=== PATIENT | female | born 1975 | race African-American/Black ===

== ENCOUNTER 2022-10-29 14:34 | Inpatient (IN) | payer OTHER ==
[2022-10-29 15:02] VITALS: BMI 22.9
[2022-10-29] MEDS ORDERED: LOPERAMIDE HCL 2 MG CAPSULE PO PRN (16:46)
[2022-10-29] MEDS ORDERED: BENZOCAINE/MENTHOL (CHLORASEPTIC ) LOZENGE MM PRN (16:46)
[2022-10-29] MEDS ORDERED: POLYETHYLENE GLYCOL (HEALTHYLAX) 3350 17 GM PACKET PO PRN (16:46)
[2022-10-29] MEDS ORDERED: MAG HYDROX/AL HYDROX/SIMETH 30 ML UNIT-DOSE CUP PO PRN (16:46)
[2022-10-29] MEDS ORDERED: P-EPHED 60MG/TRIPROLIDI 2.5MG TABLET PO PRN (16:46)
[2022-10-29] MEDS ORDERED: MAGNESIUM HYDROX 2400MG/30ML ORAL SUSPENSION 30 ML CUP PO PRN (16:46)
[2022-10-29] MEDS ORDERED: guaiFENesin 200 MG/10 ML 10 ML UNIT-DOSE CUPS PO PRN (16:46)
[2022-10-29] MEDS ORDERED: hydrOXYzine PAMOATE 25 MG CAPSULE (FP) PO ONE (17:20)
[2022-10-29] MEDS: hydrOXYzine PAMOATE 25 MG CAPSULE (FP) PO PRN (17:22)
[2022-10-29] MEDS ORDERED: NICOTINE POLACRILEX 2 MG GUM ONE (17:57)
[2022-10-29] MEDS: NICOTINE POLACRILEX 2 MG GUM BC PRN (17:58)
[2022-10-29] MEDS ORDERED: ALBUTEROL SO4 HFA INHALER IH PRN (19:55)
[2022-10-29] MEDS ORDERED: TUBERCULIN PPD 5 TU/0.1ML VIAL ID ONE (20:01)
[2022-10-29] MEDS: NICOTINE 10 MG CARTRIDGE (INHALER) IH PRN (20:04)
[2022-10-29] MEDS: levETIRAcetam 250 MG TABLET PO SCH (21:34)
[2022-10-29] MEDS: THIAMINE HCL 100 MG TABLET (FP) PO SCH (21:35)
[2022-10-29] MEDS ORDERED: MELATONIN 5 MG TABLETS PO SCH (22:00)
[2022-10-30] MEDS: NICOTINE 10 MG CARTRIDGE (INHALER) IH PRN ×3 (06:37→21:58)
[2022-10-30] MEDS: levETIRAcetam 250 MG TABLET PO SCH ×2 (09:14→21:56)
[2022-10-30] MEDS: hydrOXYzine PAMOATE 25 MG CAPSULE (FP) PO PRN (09:14)
[2022-10-30] MEDS: PRENATAL VITAMINS W/ FOLIC ACID TABLET (FP) PO SCH (09:15)
[2022-10-30] MEDS: cloNIDine HCL 0.1 MG TABLET PO SCH (10:45)
[2022-10-30] MEDS: NICOTINE POLACRILEX 2 MG GUM BC PRN (10:47)
[2022-10-30] MEDS ORDERED: DIVALPROEX SODIUM 250 MG TABLET E.C. PO ONE (10:53)
[2022-10-30 11:44] LABS: CALCIUM 8.7 mg/dL (8.5-10.1)
[2022-10-30 11:45] LABS: ALBUMIN 3.3 g/dl (3.4-5.0); BLOOD UREA NITROGEN 14.3 mg/dL (7-18)
[2022-10-30 11:48] LABS: CREATININE 0.6 mg/dL (0.55-1.3)
[2022-10-30 11:49] LABS: BILIRUBIN,TOTAL 0.2 mg/dL (0.2-1); TOT PROT 6.7 g/dl (6.4-8.2)
[2022-10-30 13:58] LABS: PH,URINE 6.5 (5.0-8.0); URINE APPEARANCE CLOUDY; URINE BILIRUBIN NEGATIVE (NEGATIVE); URINE COLOR YELLOW; URINE GLUCOSE (UA) NEGATIVE (NEGATIVE); URINE KETONE NEGATIVE (NEGATIVE); URINE LEUK ESTERASE NEGATIVE (NEGATIVE); URINE NITRITE NEGATIVE (NEGATIVE); URINE PROTEIN NEGATIVE (NEGATIVE); URINE UROBILINOGEN 0.2 mg/dL (0.2-1.0)
[2022-10-30] MEDS: traZODone HCL 50 MG TABLET (FP) PO SCH (21:56)
[2022-10-30] MEDS: GABAPENTIN 300 MG CAPSULE PO SCH (21:56)
[2022-10-30] MEDS: QUEtiapine FUMARATE 300 MG TABLET PO SCH (21:56)
[2022-10-30] MEDS: THIAMINE HCL 100 MG TABLET (FP) PO SCH (21:56)
[2022-10-31] MEDS: PRENATAL VITAMINS W/ FOLIC ACID TABLET (FP) PO SCH (10:06)
[2022-10-31] MEDS: cloNIDine HCL 0.1 MG TABLET PO SCH (10:07)
[2022-10-31] MEDS: levETIRAcetam 250 MG TABLET PO SCH ×2 (10:08→21:41)
[2022-10-31] MEDS: GABAPENTIN 300 MG CAPSULE PO SCH ×2 (10:08→21:41)
[2022-10-31] MEDS: DIVALPROEX SODIUM 250 MG TABLET E.C. PO SCH (10:08)
[2022-10-31] MEDS: hydrOXYzine PAMOATE 25 MG CAPSULE (FP) PO PRN ×2 (10:08→21:42)
[2022-10-31] MEDS: IBUPROFEN 400 MG TABLET (FP) PO PRN (12:43)
[2022-10-31 13:33] LABS: HEMATOCRIT 35.1 % (32.4-45.2); HEMOGLOBIN 11.6 GM/dL (10.7-15.3); MCH 29.8 pg (25.7-33.7); MCHC 33.1 g/dl (32.0-36.0); MEAN CELL VOLUME 90.1 fl (80-96); MEAN PLT VOLUME 8.4 fl (7.5-11.1); PLATELET COUNT 285 10^3/uL (134-434); RDW 14.5 % (11.6-15.6); WHITE BLOOD COUNT 6.2 K/mm3 (4.0-10.0)
[2022-10-31] MEDS: NICOTINE 10 MG CARTRIDGE (INHALER) IH PRN (19:02)
[2022-10-31] MEDS: NICOTINE POLACRILEX 2 MG GUM BC PRN (19:04)
[2022-10-31] MEDS: traZODone HCL 50 MG TABLET (FP) PO SCH (21:41)
[2022-10-31] MEDS: THIAMINE HCL 100 MG TABLET (FP) PO SCH (21:42)
[2022-10-31] MEDS: QUEtiapine FUMARATE 300 MG TABLET PO SCH (21:42)
[2022-11-01] MEDS: hydrOXYzine PAMOATE 25 MG CAPSULE (FP) PO PRN ×2 (08:01→18:45)
[2022-11-01] MEDS: ACETAMINOPHEN 325 MG TABLET (FP) PO PRN (08:01)
[2022-11-01] MEDS: NICOTINE 10 MG CARTRIDGE (INHALER) IH PRN (08:08)
[2022-11-01] MEDS: cloNIDine HCL 0.1 MG TABLET PO SCH (10:15)
[2022-11-01] MEDS: levETIRAcetam 250 MG TABLET PO SCH ×2 (10:15→21:51)
[2022-11-01] MEDS: PRENATAL VITAMINS W/ FOLIC ACID TABLET (FP) PO SCH (10:15)
[2022-11-01] MEDS: GABAPENTIN 300 MG CAPSULE PO SCH ×2 (10:15→21:51)
[2022-11-01] MEDS: DIVALPROEX SODIUM 250 MG TABLET E.C. PO SCH (10:16)
[2022-11-01] MEDS: SIMETHICONE 80 MG TAB.CHEW (FP) PO PRN (10:58)
[2022-11-01] MEDS: traZODone HCL 50 MG TABLET (FP) PO SCH (21:50)
[2022-11-01] MEDS: QUEtiapine FUMARATE 300 MG TABLET PO SCH (21:51)
[2022-11-01] MEDS: THIAMINE HCL 100 MG TABLET (FP) PO SCH (21:51)
[2022-11-02] MEDS: NICOTINE 10 MG CARTRIDGE (INHALER) IH PRN (07:29)
[2022-11-02] MEDS: GABAPENTIN 300 MG CAPSULE PO SCH ×2 (10:04→21:19)
[2022-11-02] MEDS: levETIRAcetam 250 MG TABLET PO SCH ×2 (10:04→21:19)
[2022-11-02] MEDS: DIVALPROEX SODIUM 250 MG TABLET E.C. PO SCH (10:04)
[2022-11-02] MEDS: PRENATAL VITAMINS W/ FOLIC ACID TABLET (FP) PO SCH (10:06)
[2022-11-02] MEDS: SIMETHICONE 80 MG TAB.CHEW (FP) PO PRN ×2 (10:07→14:08)
[2022-11-02] MEDS: hydrOXYzine PAMOATE 25 MG CAPSULE (FP) PO PRN ×2 (10:07→21:21)
[2022-11-02] MEDS: IBUPROFEN 400 MG TABLET (FP) PO PRN (10:08)
[2022-11-02] MEDS: cloNIDine HCL 0.1 MG TABLET PO SCH (10:10)
[2022-11-02] MEDS: ACETAMINOPHEN 325 MG TABLET (FP) PO PRN (14:07)
[2022-11-02] MEDS: NICOTINE POLACRILEX 2 MG GUM BC PRN ×2 (15:30→17:49)
[2022-11-02] MEDS: traZODone HCL 50 MG TABLET (FP) PO SCH (21:19)
[2022-11-02] MEDS: QUEtiapine FUMARATE 300 MG TABLET PO SCH (21:19)
[2022-11-02] MEDS: THIAMINE HCL 100 MG TABLET (FP) PO SCH (21:20)
[2022-11-03] MEDS: GABAPENTIN 300 MG CAPSULE PO SCH ×2 (10:21→21:08)
[2022-11-03] MEDS: cloNIDine HCL 0.1 MG TABLET PO SCH (10:21)
[2022-11-03] MEDS: PRENATAL VITAMINS W/ FOLIC ACID TABLET (FP) PO SCH (10:21)
[2022-11-03] MEDS: levETIRAcetam 250 MG TABLET PO SCH ×2 (10:22→21:08)
[2022-11-03] MEDS: DIVALPROEX SODIUM 250 MG TABLET E.C. PO SCH (10:22)
[2022-11-03] MEDS: hydrOXYzine PAMOATE 25 MG CAPSULE (FP) PO PRN (10:23)
[2022-11-03] MEDS: NICOTINE 10 MG CARTRIDGE (INHALER) IH PRN (19:10)
[2022-11-03] MEDS: traZODone HCL 50 MG TABLET (FP) PO SCH (21:07)
[2022-11-03] MEDS: QUEtiapine FUMARATE 300 MG TABLET PO SCH (21:08)
[2022-11-03] MEDS: SIMETHICONE 80 MG TAB.CHEW (FP) PO PRN (21:08)
[2022-11-03] MEDS: THIAMINE HCL 100 MG TABLET (FP) PO SCH (21:08)
[2022-11-04] MEDS: DIVALPROEX SODIUM 250 MG TABLET E.C. PO SCH (11:00)
[2022-11-04] MEDS: GABAPENTIN 300 MG CAPSULE PO SCH ×2 (11:00→21:25)
[2022-11-04] MEDS: levETIRAcetam 250 MG TABLET PO SCH ×2 (11:00→21:25)
[2022-11-04] MEDS: PRENATAL VITAMINS W/ FOLIC ACID TABLET (FP) PO SCH (11:00)
[2022-11-04] MEDS: cloNIDine HCL 0.1 MG TABLET PO SCH (11:01)
[2022-11-04] MEDS: SIMETHICONE 80 MG TAB.CHEW (FP) PO PRN (11:01)
[2022-11-04] MEDS: NICOTINE 10 MG CARTRIDGE (INHALER) IH PRN (15:03)
[2022-11-04] MEDS: hydrOXYzine PAMOATE 25 MG CAPSULE (FP) PO PRN ×2 (16:11→21:26)
[2022-11-04 18:01] LABS: HIV INTERPRETATION NEGATIVE (NEGATIVE)
[2022-11-04] MEDS: traZODone HCL 50 MG TABLET (FP) PO SCH (21:25)
[2022-11-04] MEDS: THIAMINE HCL 100 MG TABLET (FP) PO SCH (21:26)
[2022-11-04] MEDS: QUEtiapine FUMARATE 300 MG TABLET PO SCH (21:26)
[2022-11-05 07:25] VITALS: BP 99/70; PULSE 87; RESP 16; TEMP 97.9
[2022-11-05] MEDS: NICOTINE 10 MG CARTRIDGE (INHALER) IH PRN (08:45)
[2022-11-05] MEDS: DIVALPROEX SODIUM 250 MG TABLET E.C. PO SCH (10:22)
[2022-11-05] MEDS: PRENATAL VITAMINS W/ FOLIC ACID TABLET (FP) PO SCH (10:22)
[2022-11-05] MEDS: GABAPENTIN 300 MG CAPSULE PO SCH (10:22)
[2022-11-05] MEDS: cloNIDine HCL 0.1 MG TABLET PO SCH (10:22)
[2022-11-05] MEDS: levETIRAcetam 250 MG TABLET PO SCH (10:22)
[2022-11-05] MEDS: hydrOXYzine PAMOATE 25 MG CAPSULE (FP) PO PRN (11:42)
== END 2022-11-05 17:40 | disposition home or self-care (01) | DRG 772 ==
LOC: YASAS 14:34 → Y5N 18:54
PROVIDERS: ADMIT Allergy & Immunology; ATTEND Psychiatry & Neurology Pain Medicine
PROC: HZ42ZZZ Group Counseling for Substance Abuse Treatment, Cognitive-Behavioral (ICD-10-PCS; principal; 2022-10-29)
DX: F14.20 Cocaine dependence, uncomplicated (principal); F12.20 Cannabis dependence, uncomplicated; F17.210 Nicotine dependence, cigarettes, uncomplicated; F25.9 Schizoaffective disorder, unspecified; F19.24 Other psychoactive substance dependence with psychoactive substance-induced mood disorder; F41.9 Anxiety disorder, unspecified; G40.909 Epilepsy, unspecified, not intractable, without status epilepticus; J45.909 Unspecified asthma, uncomplicated; Z62.810 Personal history of physical and sexual abuse in childhood; Z91.410 Personal history of adult physical and sexual abuse; Z88.0 Allergy status to penicillin
CPT/HCPCS: 36415; 80053; 80164; 81003; 81025; 85027; 86780; 87389; C9803-CS; U0003; U0005

== ENCOUNTER 2023-03-13 02:14 | Inpatient (IN) | payer OTHER ==
[2023-03-13 03:21] VITALS: BMI 18.1
[2023-03-13] MEDS ORDERED: MAGNESIUM HYDROX 2400MG/30ML ORAL SUSPENSION 30 ML CUP PO PRN (04:17)
[2023-03-13] MEDS ORDERED: ONDANSETRON *ODT* 4 MG TABLET SL PRN (04:17)
[2023-03-13] MEDS ORDERED: POLYETHYLENE GLYCOL (HEALTHYLAX) 3350 17 GM PACKET PO PRN (04:17)
[2023-03-13] MEDS ORDERED: IBUPROFEN 400 MG TABLET (FP) PO PRN (04:17)
[2023-03-13] MEDS ORDERED: guaiFENesin 600 MG TABLET.ER (FP) PO PRN (04:17)
[2023-03-13] MEDS ORDERED: BENZOCAINE/MENTHOL (CHLORASEPTIC ) LOZENGE MM PRN (04:17)
[2023-03-13] MEDS ORDERED: NALOXONE HCL (KLOXXADO) 8 MG SPRAY NS PRN (04:17)
[2023-03-13] MEDS ORDERED: DICYCLOMINE HCL 10 MG CAPSULE PO PRN (04:17)
[2023-03-13] MEDS ORDERED: BENZONATATE 200 MG CAPSULE PO PRN (04:17)
[2023-03-13] MEDS ORDERED: ACETAMINOPHEN 325 MG TABLET (FP) PO PRN (04:17)
[2023-03-13] MEDS ORDERED: BISMUTH SUBSALICYLATE 524 MG/30 ML PO PRN (04:17)
[2023-03-13] MEDS ORDERED: NALOXONE HCL 0.4 MG/ML VIAL IM PRN (04:17)
[2023-03-13] MEDS ORDERED: MAG HYDROX/AL HYDROX/SIMETH 30 ML UNIT-DOSE CUP PO PRN (04:17)
[2023-03-13] MEDS ORDERED: ALBUTEROL SO4 HFA INHALER IH PRN (04:17)
[2023-03-13] MEDS ORDERED: LOPERAMIDE HCL 2 MG CAPSULE PO PRN (04:17)
[2023-03-13] MEDS ORDERED: IBUPROFEN 600 MG TABLET (FP) PO ONE (05:33)
[2023-03-13] MEDS ORDERED: hydrOXYzine PAMOATE 25 MG CAPSULE (FP) PO ONE (05:33)
[2023-03-13] MEDS: IBUPROFEN 600 MG TABLET (FP) PO PRN (05:35)
[2023-03-13] MEDS: hydrOXYzine PAMOATE 25 MG CAPSULE (FP) PO PRN (05:37)
[2023-03-13] MEDS: NICOTINE POLACRILEX 2 MG GUM BUC PRN ×2 (06:45→10:43)
[2023-03-13] MEDS: levETIRAcetam 500 MG TABLET (FP) PO SCH ×2 (10:42→22:29)
[2023-03-13] MEDS: PRENATAL VITAMINS W/ FOLIC ACID TABLET (FP) PO SCH (10:42)
[2023-03-13] MEDS: NICOTINE 21 MG/24 HOURS TOPICAL PATCH TD SCH (10:43)
[2023-03-13] MEDS ORDERED: LORazepam 1 MG TABLET PO PRN (12:23)
[2023-03-13] MEDS: LORazepam 2 MG TABLET PO SCH ×2 (17:37→22:30)
[2023-03-13] MEDS: MELATONIN 5 MG TABLETS PO SCH (22:30)
[2023-03-13] MEDS: THIAMINE HCL 100 MG TABLET (FP) PO SCH (22:30)
[2023-03-14] MEDS: LORazepam 1 MG TABLET PO SCH ×4 (05:43→22:25)
[2023-03-14] MEDS: NICOTINE 21 MG/24 HOURS TOPICAL PATCH TD SCH (10:11)
[2023-03-14] MEDS: PRENATAL VITAMINS W/ FOLIC ACID TABLET (FP) PO SCH (10:11)
[2023-03-14] MEDS: levETIRAcetam 500 MG TABLET (FP) PO SCH ×2 (10:15→22:24)
[2023-03-14] MEDS: NICOTINE POLACRILEX 2 MG GUM BUC PRN (10:16)
[2023-03-14] MEDS: cloNIDine HCL 0.1 MG TABLET PO SCH (10:54)
[2023-03-14] MEDS: GABAPENTIN 300 MG CAPSULE PO SCH ×2 (10:54→22:24)
[2023-03-14 11:43] LABS: POTASSIUM 4.5 mmol/L (3.5-5.1)
[2023-03-14 11:47] LABS: ALBUMIN 3.2 g/dl (3.4-5.0); BLOOD UREA NITROGEN 13.9 mg/dL (7-18); CALCIUM 9.4 mg/dL (8.5-10.1)
[2023-03-14 11:48] LABS: HEMATOCRIT 38.4 % (32.4-45.2); HEMOGLOBIN 12.7 GM/dL (10.7-15.3); MCH 28.9 pg (25.7-33.7); MEAN CELL VOLUME 87.6 fl (80-96); MEAN PLT VOLUME 8.2 fl (7.5-11.1); PLATELET COUNT 307 10^3/uL (134-434); RBC 4.39 M/mm3 (3.60-5.2); RDW 14.4 % (11.6-15.6); WHITE BLOOD COUNT 6.8 K/mm3 (4.0-10.0)
[2023-03-14 11:50] LABS: CREATININE 0.6 mg/dL (0.55-1.3)
[2023-03-14 11:51] LABS: BILIRUBIN,TOTAL 0.1 mg/dL (0.2-1)
[2023-03-14 11:52] LABS: TOT PROT 6.8 g/dl (6.4-8.2)
[2023-03-14] MEDS: hydrOXYzine PAMOATE 25 MG CAPSULE (FP) PO PRN (16:53)
[2023-03-14] MEDS: IBUPROFEN 600 MG TABLET (FP) PO PRN (16:55)
[2023-03-14] MEDS: MELATONIN 5 MG TABLETS PO SCH (22:24)
[2023-03-14] MEDS: traZODone HCL 50 MG TABLET (FP) PO SCH (22:24)
[2023-03-14] MEDS: THIAMINE HCL 100 MG TABLET (FP) PO SCH (22:24)
[2023-03-14] MEDS: DIVALPROEX SODIUM 250 MG TABLET E.C. PO SCH (22:25)
[2023-03-14] MEDS: QUEtiapine FUMARATE 300 MG TABLET PO SCH (22:25)
[2023-03-15] MEDS ORDERED: LORazepam 0.5 MG TABLET PO PRN
[2023-03-15] MEDS: LORazepam 0.5 MG TABLET PO SCH ×4 (04:52→22:05)
[2023-03-15] MEDS: NICOTINE 21 MG/24 HOURS TOPICAL PATCH TD SCH (09:46)
[2023-03-15] MEDS: cloNIDine HCL 0.1 MG TABLET PO SCH (09:46)
[2023-03-15] MEDS: hydrOXYzine PAMOATE 25 MG CAPSULE (FP) PO PRN (09:46)
[2023-03-15] MEDS: GABAPENTIN 300 MG CAPSULE PO SCH ×2 (09:46→22:03)
[2023-03-15] MEDS: levETIRAcetam 500 MG TABLET (FP) PO SCH ×2 (09:46→22:03)
[2023-03-15] MEDS: PRENATAL VITAMINS W/ FOLIC ACID TABLET (FP) PO SCH (09:47)
[2023-03-15] MEDS: NICOTINE POLACRILEX 2 MG GUM BUC PRN (09:48)
[2023-03-15] MEDS: MELATONIN 5 MG TABLETS PO SCH (22:03)
[2023-03-15] MEDS: QUEtiapine FUMARATE 300 MG TABLET PO SCH (22:03)
[2023-03-15] MEDS: traZODone HCL 50 MG TABLET (FP) PO SCH (22:03)
[2023-03-15] MEDS: THIAMINE HCL 100 MG TABLET (FP) PO SCH (22:03)
[2023-03-15] MEDS: DIVALPROEX SODIUM 250 MG TABLET E.C. PO SCH (22:03)
[2023-03-16] MEDS ORDERED: LORazepam 0.5 MG TABLET PO ONE (05:00)
[2023-03-16] MEDS: PRENATAL VITAMINS W/ FOLIC ACID TABLET (FP) PO SCH (09:27)
[2023-03-16] MEDS: levETIRAcetam 500 MG TABLET (FP) PO SCH (09:31)
[2023-03-16] MEDS: GABAPENTIN 300 MG CAPSULE PO SCH (09:31)
[2023-03-16] MEDS: cloNIDine HCL 0.1 MG TABLET PO SCH (09:31)
[2023-03-16] MEDS: NICOTINE 21 MG/24 HOURS TOPICAL PATCH TD SCH (09:32)
[2023-03-16] MEDS: NICOTINE POLACRILEX 2 MG GUM BUC PRN (09:32)
[2023-03-16 09:36] VITALS: BP 129/79; PULSE 90; RESP 16; TEMP 97.5
== END 2023-03-16 12:18 | disposition other institution (70) | DRG 774 ==
LOC: YASAS 02:14 → Y6N 05:24
PROVIDERS: ADMIT Allergy & Immunology; ATTEND Allergy & Immunology
PROC: HZ2ZZZZ Detoxification Services for Substance Abuse Treatment (ICD-10-PCS; principal; 2023-03-13)
DX: F10.230 Alcohol dependence with withdrawal, uncomplicated (principal); F14.20 Cocaine dependence, uncomplicated; F12.20 Cannabis dependence, uncomplicated; F17.213 Nicotine dependence, cigarettes, with withdrawal; F25.1 Schizoaffective disorder, depressive type; F19.282 Other psychoactive substance dependence with psychoactive substance-induced sleep disorder; F19.24 Other psychoactive substance dependence with psychoactive substance-induced mood disorder; G40.909 Epilepsy, unspecified, not intractable, without status epilepticus; I10 Essential (primary) hypertension; J45.20 Mild intermittent asthma, uncomplicated; Z62.810 Personal history of physical and sexual abuse in childhood; R26.89 Other abnormalities of gait and mobility; Z99.89 Dependence on other enabling machines and devices; Z91.410 Personal history of adult physical and sexual abuse; Z88.0 Allergy status to penicillin
CPT/HCPCS: 36415; 80053; 81025; 85027; 86780; 87635; 87811

== ENCOUNTER 2023-03-16 12:26 | Inpatient (IN) | payer OTHER ==
[2023-03-16] MEDS ORDERED: POLYETHYLENE GLYCOL (HEALTHYLAX) 3350 17 GM PACKET PO PRN (13:11)
[2023-03-16] MEDS ORDERED: METHOCARBAMOL 500 MG TABLET PO PRN (13:11)
[2023-03-16] MEDS ORDERED: LOPERAMIDE HCL 2 MG CAPSULE PO PRN (13:11)
[2023-03-16] MEDS ORDERED: MAGNESIUM HYDROX 2400MG/30ML ORAL SUSPENSION 30 ML CUP PO PRN (13:11)
[2023-03-16] MEDS ORDERED: IBUPROFEN 600 MG TABLET (FP) PO PRN (13:11)
[2023-03-16] MEDS ORDERED: IBUPROFEN 400 MG TABLET (FP) PO PRN (13:11)
[2023-03-16] MEDS ORDERED: AMMONIUM LACTATE 12% LOTION 225 GM BOTTLE TP PRN (13:11)
[2023-03-16] MEDS ORDERED: NICOTINE 21 MG/24 HOURS TOPICAL PATCH TD PRN (13:11)
[2023-03-16] MEDS ORDERED: COLLOIDAL OATMEAL 1 BAR EACH TP PRN (13:11)
[2023-03-16] MEDS ORDERED: guaiFENesin 600 MG TABLET.ER (FP) PO PRN (13:11)
[2023-03-16] MEDS ORDERED: MAG HYDROX/AL HYDROX/SIMETH 30 ML UNIT-DOSE CUP PO PRN (13:11)
[2023-03-16] MEDS ORDERED: NICOTINE POLACRILEX 4 MG GUM BUC PRN (13:11)
[2023-03-16] MEDS ORDERED: ACETAMINOPHEN 325 MG TABLET (FP) PO PRN (13:11)
[2023-03-16] MEDS ORDERED: NICOTINE 10 MG CARTRIDGE (INHALER) IH PRN (13:11)
[2023-03-16 13:19] VITALS: RESP 18
[2023-03-16] MEDS: DIVALPROEX SODIUM 250 MG TABLET E.C. PO SCH (21:09)
[2023-03-16] MEDS: MELATONIN 5 MG TABLETS PO SCH (21:09)
[2023-03-16] MEDS: traZODone HCL 50 MG TABLET (FP) PO SCH (21:09)
[2023-03-16] MEDS: QUEtiapine FUMARATE 300 MG TABLET PO SCH (21:09)
[2023-03-16] MEDS: GABAPENTIN 300 MG CAPSULE PO SCH (21:09)
[2023-03-16] MEDS: levETIRAcetam 500 MG TABLET (FP) PO SCH (21:09)
[2023-03-16] MEDS: THIAMINE HCL 100 MG TABLET (FP) PO SCH (21:09)
[2023-03-16] MEDS: hydrOXYzine PAMOATE 25 MG CAPSULE (FP) PO PRN (21:11)
[2023-03-17] MEDS: cloNIDine HCL 0.1 MG TABLET PO SCH (10:18)
[2023-03-17] MEDS: levETIRAcetam 500 MG TABLET (FP) PO SCH ×2 (10:19→21:15)
[2023-03-17] MEDS: PRENATAL VITAMINS W/ FOLIC ACID TABLET (FP) PO SCH (10:19)
[2023-03-17] MEDS: GABAPENTIN 300 MG CAPSULE PO SCH ×2 (10:19→21:15)
[2023-03-17] MEDS: BENZOCAINE/MENTHOL (CHLORASEPTIC ) LOZENGE MM PRN (11:52)
[2023-03-17] MEDS: BENZONATATE 200 MG CAPSULE PO PRN (11:52)
[2023-03-17] MEDS: traZODone HCL 50 MG TABLET (FP) PO SCH (21:15)
[2023-03-17] MEDS: THIAMINE HCL 100 MG TABLET (FP) PO SCH (21:15)
[2023-03-17] MEDS: QUEtiapine FUMARATE 300 MG TABLET PO SCH (21:15)
[2023-03-17] MEDS: DIVALPROEX SODIUM 250 MG TABLET E.C. PO SCH (21:15)
[2023-03-17] MEDS: MELATONIN 5 MG TABLETS PO SCH (21:16)
[2023-03-18] MEDS: GABAPENTIN 300 MG CAPSULE PO SCH ×2 (09:43→21:15)
[2023-03-18] MEDS: cloNIDine HCL 0.1 MG TABLET PO SCH (09:43)
[2023-03-18] MEDS: PRENATAL VITAMINS W/ FOLIC ACID TABLET (FP) PO SCH (09:43)
[2023-03-18] MEDS: levETIRAcetam 500 MG TABLET (FP) PO SCH ×2 (09:43→21:15)
[2023-03-18] MEDS: ALBUTEROL SO4 HFA INHALER IH PRN ×2 (13:31→20:17)
[2023-03-18] MEDS: THIAMINE HCL 100 MG TABLET (FP) PO SCH (21:15)
[2023-03-18] MEDS: MELATONIN 5 MG TABLETS PO SCH (21:15)
[2023-03-18] MEDS: traZODone HCL 50 MG TABLET (FP) PO SCH (21:15)
[2023-03-18] MEDS: QUEtiapine FUMARATE 300 MG TABLET PO SCH (21:15)
[2023-03-18] MEDS: DIVALPROEX SODIUM 250 MG TABLET E.C. PO SCH (21:15)
[2023-03-18] MEDS: hydrOXYzine PAMOATE 25 MG CAPSULE (FP) PO PRN (21:18)
[2023-03-18] MEDS: BENZOCAINE/MENTHOL (CHLORASEPTIC ) LOZENGE MM PRN (23:30)
[2023-03-18] MEDS: BENZONATATE 200 MG CAPSULE PO PRN (23:30)
[2023-03-19 07:39] VITALS: TEMP 98
[2023-03-19] MEDS: levETIRAcetam 500 MG TABLET (FP) PO SCH (10:11)
[2023-03-19] MEDS: cloNIDine HCL 0.1 MG TABLET PO SCH (10:11)
[2023-03-19] MEDS: GABAPENTIN 300 MG CAPSULE PO SCH (10:11)
[2023-03-19] MEDS: PRENATAL VITAMINS W/ FOLIC ACID TABLET (FP) PO SCH (10:12)
[2023-03-19] MEDS: ALBUTEROL SO4 HFA INHALER IH PRN (10:12)
[2023-03-19 10:29] VITALS: BP 111/58; PULSE 99
[2023-03-19] MEDS ORDERED: ALBUTEROL SO4 2.5/IPRATROPIUM 0.5 INH SOL 3 ML VIAL.NEB. NEB PRN (13:07)
[2023-03-19] MEDS ORDERED: PANTOPRAZOLE 40 MG TABLET PO SCH (13:15)
[2023-03-19] MEDS ORDERED: BUDESONIDE/FORMETEROL FUMARATE 80/4.5 mcg INHALER IH SCH (13:15)
[2023-03-19] MEDS ORDERED: guaiFENesin 600 MG TABLET.ER (FP) PO SCH (13:15)
== END 2023-03-19 18:00 | disposition left against medical advice (07) | DRG 770 ==
LOC: YASAS 12:26 → Y5N 12:29
PROVIDERS: ADMIT Allergy & Immunology; ATTEND Psychiatry & Neurology Pain Medicine
PROC: HZ42ZZZ Group Counseling for Substance Abuse Treatment, Cognitive-Behavioral (ICD-10-PCS; principal; 2023-03-16)
DX: F10.20 Alcohol dependence, uncomplicated (principal); F14.20 Cocaine dependence, uncomplicated; F12.20 Cannabis dependence, uncomplicated; F17.210 Nicotine dependence, cigarettes, uncomplicated; I10 Essential (primary) hypertension; J45.909 Unspecified asthma, uncomplicated; R05.9 Cough, unspecified; Z88.0 Allergy status to penicillin
CPT/HCPCS: 26055; 36415; 80164

== ENCOUNTER 2023-04-05 09:27 | Inpatient (IN) | payer OTHER ==
[2023-04-05 09:55] VITALS: BMI 20.6
[2023-04-05] MEDS ORDERED: LOPERAMIDE HCL 2 MG CAPSULE PO PRN (11:06)
[2023-04-05] MEDS ORDERED: NALOXONE HCL 0.4 MG/ML VIAL IM PRN (11:06)
[2023-04-05] MEDS ORDERED: POLYETHYLENE GLYCOL (HEALTHYLAX) 3350 17 GM PACKET PO PRN (11:06)
[2023-04-05] MEDS ORDERED: ACETAMINOPHEN 325 MG TABLET (FP) PO PRN (11:06)
[2023-04-05] MEDS ORDERED: guaiFENesin 600 MG TABLET.ER (FP) PO PRN (11:06)
[2023-04-05] MEDS ORDERED: AMMONIUM LACTATE 12% LOTION 225 GM BOTTLE TP PRN (11:06)
[2023-04-05] MEDS ORDERED: BENZOCAINE/MENTHOL (CHLORASEPTIC ) LOZENGE MM PRN (11:06)
[2023-04-05] MEDS ORDERED: IBUPROFEN 400 MG TABLET (FP) PO PRN (11:06)
[2023-04-05] MEDS ORDERED: BENZONATATE 200 MG CAPSULE PO PRN (11:06)
[2023-04-05] MEDS ORDERED: NALOXONE HCL (KLOXXADO) 8 MG SPRAY NS PRN (11:06)
[2023-04-05] MEDS ORDERED: PRENATAL VITAMINS W/ FOLIC ACID TABLET (FP) PO ONE (11:28)
[2023-04-05] MEDS: PRENATAL VITAMINS W/ FOLIC ACID TABLET (FP) PO SCH (11:31)
[2023-04-05] MEDS ORDERED: levETIRAcetam 500 MG TABLET (FP) PO ONE (12:47)
[2023-04-05] MEDS: ALBUTEROL SO4 HFA INHALER IH PRN ×2 (12:53→21:20)
[2023-04-05] MEDS: NICOTINE 21 MG/24 HOURS TOPICAL PATCH TD SCH (14:09)
[2023-04-05] MEDS: hydrOXYzine PAMOATE 25 MG CAPSULE (FP) PO PRN (14:26)
[2023-04-05 16:58] LABS: POTASSIUM 4.1 mmol/L (3.5-5.1)
[2023-04-05 17:00] LABS: HEMATOCRIT 35.1 % (32.4-45.2); HEMOGLOBIN 11.8 GM/dL (10.7-15.3); MCH 29.5 pg (25.7-33.7); MCHC 33.5 g/dl (32.0-36.0); MEAN CELL VOLUME 87.9 fl (80-96); MEAN PLT VOLUME 7.9 fl (7.5-11.1); PLATELET COUNT 350 10^3/uL (134-434); RBC 3.99 M/mm3 (3.60-5.2); RDW 14.4 % (11.6-15.6); WHITE BLOOD COUNT 7.9 K/mm3 (4.0-10.0)
[2023-04-05 17:01] LABS: BLOOD UREA NITROGEN 23.2 mg/dL (7-18)
[2023-04-05 17:02] LABS: ALBUMIN 3.5 g/dl (3.4-5.0)
[2023-04-05 17:05] LABS: CALCIUM 8.7 mg/dL (8.5-10.1); CREATININE 0.7 mg/dL (0.55-1.3)
[2023-04-05 17:06] LABS: BILIRUBIN,TOTAL 0.3 mg/dL (0.2-1); TOT PROT 7.9 g/dl (6.4-8.2)
[2023-04-05] MEDS: cloNIDine HCL 0.1 MG TABLET PO SCH (19:15)
[2023-04-05] MEDS: THIAMINE HCL 100 MG TABLET (FP) PO SCH (21:21)
[2023-04-05] MEDS: PARoxetine HCL 20 MG TABLET PO SCH (21:21)
[2023-04-05] MEDS: DIVALPROEX SODIUM 250 MG TABLET E.C. PO SCH (21:22)
[2023-04-05] MEDS: levETIRAcetam 500 MG TABLET (FP) PO SCH (21:22)
[2023-04-05] MEDS: QUEtiapine FUMARATE 400 MG TABLET PO SCH (21:22)
[2023-04-05] MEDS: traZODone HCL 50 MG TABLET (FP) PO SCH (21:22)
[2023-04-05] MEDS: GABAPENTIN 300 MG CAPSULE PO SCH (21:22)
[2023-04-05] MEDS ORDERED: MELATONIN 5 MG TABLETS PO SCH (22:00)
[2023-04-06] MEDS: NICOTINE 21 MG/24 HOURS TOPICAL PATCH TD SCH (09:51)
[2023-04-06] MEDS: PRENATAL VITAMINS W/ FOLIC ACID TABLET (FP) PO SCH (09:51)
[2023-04-06] MEDS: levETIRAcetam 500 MG TABLET (FP) PO SCH ×2 (09:51→21:17)
[2023-04-06] MEDS: GABAPENTIN 300 MG CAPSULE PO SCH ×2 (09:51→21:16)
[2023-04-06 12:15] LABS: EPI CELLS 32 /uL (0-25.1); HYALINE CASTS 0 /uL (0-3.1); URINE APPEARANCE CLEAR; URINE BACTERIA 842 /uL (0-1359); URINE BILIRUBIN NEGATIVE (NEGATIVE); URINE COLOR YELLOW; URINE GLUCOSE (UA) NEGATIVE (NEGATIVE); URINE KETONE NEGATIVE (NEGATIVE); URINE LEUK ESTERASE TRACE (NEGATIVE); URINE NITRITE NEGATIVE (NEGATIVE); URINE PROTEIN NEGATIVE (NEGATIVE); URINE RBC 6 /uL (0-23.9); URINE UROBILINOGEN 0.2 mg/dL (0.2-1.0); URINE WBC 50 /uL (0-25.8)
[2023-04-06] MEDS: cloNIDine HCL 0.1 MG TABLET PO SCH (18:16)
[2023-04-06] MEDS: THIAMINE HCL 100 MG TABLET (FP) PO SCH (21:15)
[2023-04-06] MEDS: traZODone HCL 50 MG TABLET (FP) PO SCH (21:16)
[2023-04-06] MEDS: QUEtiapine FUMARATE 400 MG TABLET PO SCH (21:16)
[2023-04-06] MEDS: DIVALPROEX SODIUM 250 MG TABLET E.C. PO SCH (21:17)
[2023-04-06] MEDS: PARoxetine HCL 20 MG TABLET PO SCH (21:17)
[2023-04-06] MEDS: hydrOXYzine PAMOATE 25 MG CAPSULE (FP) PO PRN (21:18)
[2023-04-07] MEDS: PRENATAL VITAMINS W/ FOLIC ACID TABLET (FP) PO SCH (09:58)
[2023-04-07] MEDS: NICOTINE 21 MG/24 HOURS TOPICAL PATCH TD SCH (09:59)
[2023-04-07] MEDS: levETIRAcetam 500 MG TABLET (FP) PO SCH ×2 (09:59→21:21)
[2023-04-07] MEDS: GABAPENTIN 300 MG CAPSULE PO SCH ×2 (09:59→21:22)
[2023-04-07] MEDS: hydrOXYzine PAMOATE 25 MG CAPSULE (FP) PO PRN ×3 (10:00→21:23)
[2023-04-07] MEDS: cloNIDine HCL 0.1 MG TABLET PO SCH (18:04)
[2023-04-07] MEDS: PARoxetine HCL 20 MG TABLET PO SCH (21:21)
[2023-04-07] MEDS: THIAMINE HCL 100 MG TABLET (FP) PO SCH (21:21)
[2023-04-07] MEDS: DIVALPROEX SODIUM 250 MG TABLET E.C. PO SCH (21:21)
[2023-04-07] MEDS: traZODone HCL 50 MG TABLET (FP) PO SCH (21:22)
[2023-04-07] MEDS: QUEtiapine FUMARATE 400 MG TABLET PO SCH (21:22)
[2023-04-07] MEDS: COLLOIDAL OATMEAL 1 BAR EACH TP PRN (21:26)
[2023-04-08] MEDS: MAGNESIUM HYDROX 2400MG/30ML ORAL SUSPENSION 30 ML CUP PO PRN (03:46)
[2023-04-08] MEDS: NICOTINE 21 MG/24 HOURS TOPICAL PATCH TD SCH (09:30)
[2023-04-08] MEDS: PRENATAL VITAMINS W/ FOLIC ACID TABLET (FP) PO SCH (09:30)
[2023-04-08] MEDS: GABAPENTIN 300 MG CAPSULE PO SCH ×2 (09:30→21:26)
[2023-04-08] MEDS: levETIRAcetam 500 MG TABLET (FP) PO SCH ×2 (09:30→21:26)
[2023-04-08] MEDS: hydrOXYzine PAMOATE 25 MG CAPSULE (FP) PO PRN ×2 (09:31→21:27)
[2023-04-08] MEDS: MAG HYDROX/AL HYDROX/SIMETH 30 ML UNIT-DOSE CUP PO PRN (15:05)
[2023-04-08] MEDS: cloNIDine HCL 0.1 MG TABLET PO SCH (17:02)
[2023-04-08] MEDS: COLLOIDAL OATMEAL 1 BAR EACH TP PRN (17:08)
[2023-04-08] MEDS: PARoxetine HCL 20 MG TABLET PO SCH (21:26)
[2023-04-08] MEDS: traZODone HCL 50 MG TABLET (FP) PO SCH (21:26)
[2023-04-08] MEDS: THIAMINE HCL 100 MG TABLET (FP) PO SCH (21:26)
[2023-04-08] MEDS: QUEtiapine FUMARATE 400 MG TABLET PO SCH (21:26)
[2023-04-08] MEDS: DIVALPROEX SODIUM 250 MG TABLET E.C. PO SCH (21:26)
[2023-04-09] MEDS: levETIRAcetam 500 MG TABLET (FP) PO SCH ×2 (10:06→21:52)
[2023-04-09] MEDS: PRENATAL VITAMINS W/ FOLIC ACID TABLET (FP) PO SCH (10:06)
[2023-04-09] MEDS: GABAPENTIN 300 MG CAPSULE PO SCH ×2 (10:07→21:52)
[2023-04-09] MEDS: hydrOXYzine PAMOATE 25 MG CAPSULE (FP) PO PRN ×2 (10:07→20:10)
[2023-04-09] MEDS: NICOTINE 21 MG/24 HOURS TOPICAL PATCH TD SCH (10:07)
[2023-04-09] MEDS: MAG HYDROX/AL HYDROX/SIMETH 30 ML UNIT-DOSE CUP PO PRN (12:31)
[2023-04-09] MEDS: MAGNESIUM HYDROX 2400MG/30ML ORAL SUSPENSION 30 ML CUP PO PRN (14:26)
[2023-04-09] MEDS: cloNIDine HCL 0.1 MG TABLET PO SCH (17:23)
[2023-04-09] MEDS: PARoxetine HCL 20 MG TABLET PO SCH (21:52)
[2023-04-09] MEDS: DIVALPROEX SODIUM 250 MG TABLET E.C. PO SCH (21:52)
[2023-04-09] MEDS: THIAMINE HCL 100 MG TABLET (FP) PO SCH (21:52)
[2023-04-09] MEDS: QUEtiapine FUMARATE 400 MG TABLET PO SCH (21:52)
[2023-04-09] MEDS: traZODone HCL 50 MG TABLET (FP) PO SCH (21:52)
[2023-04-10] MEDS: PRENATAL VITAMINS W/ FOLIC ACID TABLET (FP) PO SCH (09:59)
[2023-04-10] MEDS: NICOTINE 21 MG/24 HOURS TOPICAL PATCH TD SCH (09:59)
[2023-04-10] MEDS: GABAPENTIN 300 MG CAPSULE PO SCH ×2 (09:59→21:26)
[2023-04-10] MEDS: levETIRAcetam 500 MG TABLET (FP) PO SCH ×2 (09:59→21:27)
[2023-04-10] MEDS: hydrOXYzine PAMOATE 25 MG CAPSULE (FP) PO PRN (14:58)
[2023-04-10] MEDS: cloNIDine HCL 0.1 MG TABLET PO SCH (17:45)
[2023-04-10] MEDS: DIVALPROEX SODIUM 250 MG TABLET E.C. PO SCH (21:26)
[2023-04-10] MEDS: PARoxetine HCL 20 MG TABLET PO SCH (21:26)
[2023-04-10] MEDS: THIAMINE HCL 100 MG TABLET (FP) PO SCH (21:26)
[2023-04-10] MEDS: traZODone HCL 50 MG TABLET (FP) PO SCH (21:26)
[2023-04-10] MEDS: QUEtiapine FUMARATE 400 MG TABLET PO SCH (21:27)
[2023-04-11] MEDS: levETIRAcetam 500 MG TABLET (FP) PO SCH ×2 (10:26→21:24)
[2023-04-11] MEDS: PRENATAL VITAMINS W/ FOLIC ACID TABLET (FP) PO SCH (10:26)
[2023-04-11] MEDS: GABAPENTIN 300 MG CAPSULE PO SCH ×2 (10:26→21:24)
[2023-04-11] MEDS: NICOTINE 21 MG/24 HOURS TOPICAL PATCH TD SCH (10:27)
[2023-04-11] MEDS: hydrOXYzine PAMOATE 25 MG CAPSULE (FP) PO PRN (10:27)
[2023-04-11] MEDS: cloNIDine HCL 0.1 MG TABLET PO SCH (17:37)
[2023-04-11] MEDS: traZODone HCL 50 MG TABLET (FP) PO SCH (21:24)
[2023-04-11] MEDS: DIVALPROEX SODIUM 250 MG TABLET E.C. PO SCH (21:24)
[2023-04-11] MEDS: QUEtiapine FUMARATE 200 MG TABLET PO SCH (21:24)
[2023-04-11] MEDS: PARoxetine HCL 20 MG TABLET PO SCH (21:24)
[2023-04-11] MEDS: THIAMINE HCL 100 MG TABLET (FP) PO SCH (21:24)
[2023-04-12] MEDS: levETIRAcetam 500 MG TABLET (FP) PO SCH ×2 (09:45→21:18)
[2023-04-12] MEDS: PRENATAL VITAMINS W/ FOLIC ACID TABLET (FP) PO SCH (09:45)
[2023-04-12] MEDS: GABAPENTIN 300 MG CAPSULE PO SCH ×2 (09:45→21:18)
[2023-04-12] MEDS: NICOTINE 21 MG/24 HOURS TOPICAL PATCH TD SCH (09:45)
[2023-04-12] MEDS: cloNIDine HCL 0.1 MG TABLET PO SCH (17:20)
[2023-04-12] MEDS: ALBUTEROL SO4 HFA INHALER IH PRN (21:17)
[2023-04-12] MEDS: PARoxetine HCL 20 MG TABLET PO SCH (21:18)
[2023-04-12] MEDS: THIAMINE HCL 100 MG TABLET (FP) PO SCH (21:18)
[2023-04-12] MEDS: QUEtiapine FUMARATE 200 MG TABLET PO SCH (21:18)
[2023-04-12] MEDS: traZODone HCL 50 MG TABLET (FP) PO SCH (21:18)
[2023-04-12] MEDS: DIVALPROEX SODIUM 250 MG TABLET E.C. PO SCH (21:18)
[2023-04-12] MEDS: hydrOXYzine PAMOATE 25 MG CAPSULE (FP) PO PRN (21:19)
[2023-04-13] MEDS: MAG HYDROX/AL HYDROX/SIMETH 30 ML UNIT-DOSE CUP PO PRN (04:05)
[2023-04-13] MEDS: levETIRAcetam 500 MG TABLET (FP) PO SCH ×2 (09:48→21:26)
[2023-04-13] MEDS: PRENATAL VITAMINS W/ FOLIC ACID TABLET (FP) PO SCH (09:48)
[2023-04-13] MEDS: GABAPENTIN 300 MG CAPSULE PO SCH ×2 (09:48→21:26)
[2023-04-13] MEDS: NICOTINE 21 MG/24 HOURS TOPICAL PATCH TD SCH (09:48)
[2023-04-13] MEDS: cloNIDine HCL 0.1 MG TABLET PO SCH (17:15)
[2023-04-13] MEDS: traZODone HCL 50 MG TABLET (FP) PO SCH (21:26)
[2023-04-13] MEDS: DIVALPROEX SODIUM 250 MG TABLET E.C. PO SCH (21:26)
[2023-04-13] MEDS: PARoxetine HCL 20 MG TABLET PO SCH (21:26)
[2023-04-13] MEDS: THIAMINE HCL 100 MG TABLET (FP) PO SCH (21:26)
[2023-04-13] MEDS: QUEtiapine FUMARATE 200 MG TABLET PO SCH (21:26)
[2023-04-14] MEDS: GABAPENTIN 300 MG CAPSULE PO SCH ×2 (10:03→21:21)
[2023-04-14] MEDS: levETIRAcetam 500 MG TABLET (FP) PO SCH ×2 (10:03→21:21)
[2023-04-14] MEDS: NICOTINE 21 MG/24 HOURS TOPICAL PATCH TD SCH (10:03)
[2023-04-14] MEDS: PRENATAL VITAMINS W/ FOLIC ACID TABLET (FP) PO SCH (10:03)
[2023-04-14] MEDS: COLLOIDAL OATMEAL 1 BAR EACH TP PRN (14:06)
[2023-04-14] MEDS: cloNIDine HCL 0.1 MG TABLET PO SCH (18:28)
[2023-04-14] MEDS: THIAMINE HCL 100 MG TABLET (FP) PO SCH (21:21)
[2023-04-14] MEDS: traZODone HCL 50 MG TABLET (FP) PO SCH (21:21)
[2023-04-14] MEDS: QUEtiapine FUMARATE 200 MG TABLET PO SCH (21:21)
[2023-04-14] MEDS: PARoxetine HCL 20 MG TABLET PO SCH (21:21)
[2023-04-14] MEDS: DIVALPROEX SODIUM 250 MG TABLET E.C. PO SCH (21:21)
[2023-04-14] MEDS: hydrOXYzine PAMOATE 25 MG CAPSULE (FP) PO PRN (21:22)
[2023-04-15] MEDS: levETIRAcetam 500 MG TABLET (FP) PO SCH ×2 (09:48→21:34)
[2023-04-15] MEDS: NICOTINE 21 MG/24 HOURS TOPICAL PATCH TD SCH (09:48)
[2023-04-15] MEDS: GABAPENTIN 300 MG CAPSULE PO SCH ×2 (09:48→21:34)
[2023-04-15] MEDS: PRENATAL VITAMINS W/ FOLIC ACID TABLET (FP) PO SCH (09:48)
[2023-04-15] MEDS: cloNIDine HCL 0.1 MG TABLET PO SCH (18:21)
[2023-04-15] MEDS: ALBUTEROL SO4 HFA INHALER IH PRN (21:33)
[2023-04-15] MEDS: QUEtiapine FUMARATE 200 MG TABLET PO SCH (21:34)
[2023-04-15] MEDS: PARoxetine HCL 20 MG TABLET PO SCH (21:34)
[2023-04-15] MEDS: traZODone HCL 50 MG TABLET (FP) PO SCH (21:34)
[2023-04-15] MEDS: DIVALPROEX SODIUM 250 MG TABLET E.C. PO SCH (21:34)
[2023-04-15] MEDS: THIAMINE HCL 100 MG TABLET (FP) PO SCH (21:34)
[2023-04-15] MEDS: hydrOXYzine PAMOATE 25 MG CAPSULE (FP) PO PRN (21:35)
[2023-04-16] MEDS: GABAPENTIN 300 MG CAPSULE PO SCH ×2 (09:45→21:24)
[2023-04-16] MEDS: PRENATAL VITAMINS W/ FOLIC ACID TABLET (FP) PO SCH (09:45)
[2023-04-16] MEDS: levETIRAcetam 500 MG TABLET (FP) PO SCH ×2 (09:45→21:24)
[2023-04-16] MEDS: NICOTINE 21 MG/24 HOURS TOPICAL PATCH TD SCH (09:45)
[2023-04-16] MEDS: hydrOXYzine PAMOATE 25 MG CAPSULE (FP) PO PRN ×2 (09:46→21:26)
[2023-04-16] MEDS: cloNIDine HCL 0.1 MG TABLET PO SCH (17:54)
[2023-04-16] MEDS: PARoxetine HCL 20 MG TABLET PO SCH (21:23)
[2023-04-16] MEDS: QUEtiapine FUMARATE 200 MG TABLET PO SCH (21:23)
[2023-04-16] MEDS: DIVALPROEX SODIUM 250 MG TABLET E.C. PO SCH (21:24)
[2023-04-16] MEDS: THIAMINE HCL 100 MG TABLET (FP) PO SCH (21:24)
[2023-04-16] MEDS: traZODone HCL 50 MG TABLET (FP) PO SCH (21:24)
[2023-04-17] MEDS: NICOTINE 21 MG/24 HOURS TOPICAL PATCH TD SCH (10:00)
[2023-04-17] MEDS: PRENATAL VITAMINS W/ FOLIC ACID TABLET (FP) PO SCH (10:00)
[2023-04-17] MEDS: GABAPENTIN 300 MG CAPSULE PO SCH ×2 (10:00→21:19)
[2023-04-17] MEDS: levETIRAcetam 500 MG TABLET (FP) PO SCH ×2 (10:00→21:19)
[2023-04-17] MEDS: cloNIDine HCL 0.1 MG TABLET PO SCH (17:28)
[2023-04-17] MEDS: hydrOXYzine PAMOATE 25 MG CAPSULE (FP) PO PRN (18:09)
[2023-04-17] MEDS: PARoxetine HCL 20 MG TABLET PO SCH (21:19)
[2023-04-17] MEDS: QUEtiapine FUMARATE 200 MG TABLET PO SCH (21:19)
[2023-04-17] MEDS: THIAMINE HCL 100 MG TABLET (FP) PO SCH (21:19)
[2023-04-17] MEDS: DIVALPROEX SODIUM 250 MG TABLET E.C. PO SCH (21:19)
[2023-04-17] MEDS: traZODone HCL 50 MG TABLET (FP) PO SCH (21:49)
[2023-04-17] MEDS ORDERED: traZODone HCL 50 MG TABLET (FP) PO SCH (22:00)
[2023-04-18] MEDS: GABAPENTIN 300 MG CAPSULE PO SCH ×2 (10:16→21:34)
[2023-04-18] MEDS: levETIRAcetam 500 MG TABLET (FP) PO SCH ×2 (10:16→21:32)
[2023-04-18] MEDS: PRENATAL VITAMINS W/ FOLIC ACID TABLET (FP) PO SCH (10:16)
[2023-04-18] MEDS: NICOTINE 21 MG/24 HOURS TOPICAL PATCH TD SCH (10:16)
[2023-04-18] MEDS: IBUPROFEN 600 MG TABLET (FP) PO PRN ×2 (10:18→21:58)
[2023-04-18] MEDS ORDERED: OFLOXACIN 0.3% OTIC SOLUTION 5 ML BOTTLE AS SCH (11:30)
[2023-04-18] MEDS: NEOMYCIN/POLYMYXN/HC OTIC SUSPENSION 10 ML BOTTLE AS SCH ×3 (14:14→21:35)
[2023-04-18] MEDS: hydrOXYzine PAMOATE 25 MG CAPSULE (FP) PO PRN (17:42)
[2023-04-18] MEDS: cloNIDine HCL 0.1 MG TABLET PO SCH (17:43)
[2023-04-18] MEDS: DIVALPROEX SODIUM 250 MG TABLET E.C. PO SCH (21:33)
[2023-04-18] MEDS: PARoxetine HCL 20 MG TABLET PO SCH (21:33)
[2023-04-18] MEDS: THIAMINE HCL 100 MG TABLET (FP) PO SCH (21:33)
[2023-04-18] MEDS: traZODone HCL 50 MG TABLET (FP) PO SCH (21:33)
[2023-04-18] MEDS: QUEtiapine FUMARATE 200 MG TABLET PO SCH (21:33)
[2023-04-19 07:12] VITALS: BP 101/70; PULSE 98; RESP 18; TEMP 97.7
[2023-04-19] MEDS: levETIRAcetam 500 MG TABLET (FP) PO SCH (09:24)
[2023-04-19] MEDS: GABAPENTIN 300 MG CAPSULE PO SCH (09:24)
[2023-04-19] MEDS: PRENATAL VITAMINS W/ FOLIC ACID TABLET (FP) PO SCH (09:25)
[2023-04-19] MEDS: NEOMYCIN/POLYMYXN/HC OTIC SUSPENSION 10 ML BOTTLE AS SCH (11:02)
[2023-04-19] MEDS: NICOTINE 21 MG/24 HOURS TOPICAL PATCH TD SCH (11:02)
== END 2023-04-19 09:35 | disposition home or self-care (01) | DRG 772 ==
LOC: YASAS 09:27 → Y5N 11:06
PROVIDERS: ADMIT Allergy & Immunology; ATTEND Psychiatry & Neurology Pain Medicine
PROC: HZ42ZZZ Group Counseling for Substance Abuse Treatment, Cognitive-Behavioral (ICD-10-PCS; principal; 2023-04-05)
DX: F10.20 Alcohol dependence, uncomplicated (principal); F14.20 Cocaine dependence, uncomplicated; F12.20 Cannabis dependence, uncomplicated; F17.210 Nicotine dependence, cigarettes, uncomplicated; F25.1 Schizoaffective disorder, depressive type; I10 Essential (primary) hypertension; G40.909 Epilepsy, unspecified, not intractable, without status epilepticus; J45.20 Mild intermittent asthma, uncomplicated; R26.2 Difficulty in walking, not elsewhere classified; Z99.89 Dependence on other enabling machines and devices; Z86.59 Personal history of other mental and behavioral disorders; Z88.0 Allergy status to penicillin; Z91.013 Allergy to seafood; Z62.810 Personal history of physical and sexual abuse in childhood; Z56.0 Unemployment, unspecified
CPT/HCPCS: 36415; 80053; 80164; 81003; 81025; 85027; 86593; 86780; 87635; 87811

== ENCOUNTER 2023-11-28 11:48 | Inpatient (IN) | payer OTHER ==
[2023-11-28 12:02] VITALS: BMI 22.1
[2023-11-28] MEDS ORDERED: BENZONATATE 200 MG CAPSULE PO PRN (13:18)
[2023-11-28] MEDS ORDERED: NALOXONE HCL (KLOXXADO) 8 MG SPRAY NS PRN (13:18)
[2023-11-28] MEDS ORDERED: NICOTINE POLACRILEX 2 MG LOZENGE BC PRN (13:18)
[2023-11-28] MEDS ORDERED: ACETAMINOPHEN 325 MG TABLET (FP) PO PRN (13:18)
[2023-11-28] MEDS ORDERED: guaiFENesin 600 MG TABLET.ER (FP) PO PRN (13:18)
[2023-11-28] MEDS ORDERED: NALOXONE HCL 0.4 MG/ML VIAL IM PRN (13:18)
[2023-11-28] MEDS ORDERED: METHOCARBAMOL 500 MG TABLET PO PRN (13:18)
[2023-11-28] MEDS ORDERED: IBUPROFEN 600 MG TABLET (FP) PO PRN (13:18)
[2023-11-28] MEDS ORDERED: BENZOCAINE/MENTHOL (CHLORASEPTIC ) LOZENGE MM PRN (13:18)
[2023-11-28] MEDS ORDERED: DICYCLOMINE HCL 10 MG CAPSULE PO PRN (13:18)
[2023-11-28] MEDS ORDERED: hydrOXYzine PAMOATE 25 MG CAPSULE (FP) PO PRN (13:18)
[2023-11-28] MEDS ORDERED: ONDANSETRON *ODT* 4 MG TABLET SL PRN (13:18)
[2023-11-28] MEDS ORDERED: LOPERAMIDE HCL 2 MG CAPSULE PO PRN (13:18)
[2023-11-28] MEDS ORDERED: MAG HYDROX/AL HYDROX/SIMETH 30 ML UNIT-DOSE CUP PO PRN (13:18)
[2023-11-28] MEDS ORDERED: IBUPROFEN 400 MG TABLET (FP) PO PRN (13:18)
[2023-11-28] MEDS ORDERED: MAGNESIUM HYDROX 2400MG/30ML ORAL SUSPENSION 30 ML CUP PO PRN (13:18)
[2023-11-28] MEDS ORDERED: POLYETHYLENE GLYCOL (HEALTHYLAX) 3350 17 GM PACKET PO PRN (13:18)
[2023-11-28] MEDS ORDERED: ALBUTEROL SO4 HFA INHALER IH PRN (14:29)
[2023-11-28] MEDS ORDERED: NICOTINE 14 MG/24 HOURS TOPICAL PATCH TD ONE (14:30)
[2023-11-28] MEDS ORDERED: PRENATAL VITAMINS W/ FOLIC ACID TABLET (FP) PO ONE (14:30)
[2023-11-28] MEDS ORDERED: LORazepam 2 MG TABLET ONE (14:30)
[2023-11-28] MEDS: NICOTINE 14 MG/24 HOURS TOPICAL PATCH TD SCH (14:33)
[2023-11-28] MEDS: PRENATAL VITAMINS W/ FOLIC ACID TABLET (FP) PO SCH (14:33)
[2023-11-28] MEDS: LORazepam 1 MG TABLET PO PRN (14:34)
[2023-11-28] MEDS: LORazepam 2 MG TABLET PO SCH (17:22)
[2023-11-28] MEDS: DOXYCYCLINE HYCLATE 100 MG TABLET PO SCH (17:26)
[2023-11-28] MEDS: BUDESONIDE/FORMETEROL FUMARATE 160/4.5 mcg INHALER IH SCH (22:06)
[2023-11-28] MEDS: MELATONIN 5 MG TABLETS PO SCH (22:06)
[2023-11-28] MEDS: levETIRAcetam 500 MG TABLET (FP) PO SCH (22:06)
[2023-11-28] MEDS: ATORVASTATIN CA 20 MG TABLET (FP) PO SCH (22:07)
[2023-11-28] MEDS: GABAPENTIN 300 MG CAPSULE PO SCH (22:07)
[2023-11-28] MEDS: THIAMINE HCL 100 MG TABLET (FP) PO SCH (22:07)
[2023-11-28] MEDS: traZODone HCL 50 MG TABLET (FP) PO ONE (22:07)
[2023-11-29] MEDS: amLODIPine BESYLATE 5 MG TABLET (FP) PO SCH (10:08)
[2023-11-29] MEDS: cloNIDine HCL 0.1 MG TABLET PO SCH (10:08)
[2023-11-29] MEDS: VERAPAMIL HCL 180 MG E.R. TABLET PO SCH (10:08)
[2023-11-29 11:51] LABS: HEMATOCRIT 39.8 % (32.4-45.2); HEMOGLOBIN 13.3 GM/dL (10.7-15.3); MCH 30.1 pg (25.7-33.7); MCHC 33.4 g/dl (32.0-36.0); MEAN CELL VOLUME 90.3 fl (80-96); MEAN PLT VOLUME 7.9 fl (7.5-11.1); PLATELET COUNT 325 10^3/uL (134-434); RDW 15.1 % (11.6-15.6); WHITE BLOOD COUNT 6.3 K/mm3 (4.0-10.0)
[2023-11-29 12:13] LABS: CHLORIDE 106 mmol/L (98-107); POTASSIUM 4.4 mmol/L (3.5-5.1); SODIUM 140 mmol/L (136-145)
[2023-11-29 12:18] LABS: ALBUMIN 3.3 g/dl (3.4-5.0); ANION GAP 6 mmol/L (4-13); CALCIUM 8.9 mg/dL (8.5-10.1); CO2 28 mmol/L (21-32); GLUCOSE,RANDOM 99 mg/dL (74-106)
[2023-11-29 12:20] LABS: CREATININE 0.6 mg/dL (0.55-1.3)
[2023-11-29 12:21] LABS: SGOT/AST 15 U/L (15-37); SGPT/ALT 18 U/L (13-61)
[2023-11-29 12:23] LABS: BILIRUBIN,TOTAL 0.3 mg/dL (0.2-1); TOT PROT 6.8 g/dl (6.4-8.2)
[2023-11-29 12:24] LABS: ALK PHOS 75 U/L (45-117)
[2023-11-29] MEDS: QUEtiapine FUMARATE 200 MG TABLET PO SCH (22:25)
[2023-11-29] MEDS: traZODone HCL 100 MG TABLET (FP) PO SCH (22:25)
[2023-11-30] MEDS: LORazepam 1 MG TABLET PO SCH (05:35)
[2023-11-30] MEDS: LORazepam 0.5 MG TABLET PO SCH (10:36)
[2023-11-30] MEDS: LACTULOSE 20 GM/30 ML UDC (FOR ORAL USE ONLY) PO SCH (13:59)
[2023-11-30 20:55] VITALS: RESP 18
[2023-11-30] MEDS: BISMUTH SUBSALICYLATE 262 MG/15 ML BTL PO PRN (22:22)
[2023-12-01] MEDS ORDERED: LORazepam 0.5 MG TABLET PO PRN
[2023-12-01] MEDS: LORazepam 0.5 MG TABLET PO SCH (05:31)
[2023-12-01 13:04] VITALS: BP 113/78; PULSE 111; TEMP 97.7
[2023-12-02] MEDS ORDERED: LORazepam 0.5 MG TABLET PO ONE (05:00)
== END 2023-12-01 13:41 | disposition other institution (70) | DRG 774 ==
LOC: YASAS 11:48 → Y3N 13:38
PROVIDERS: ADMIT Allergy & Immunology; ATTEND Surgery
PROC: HZ2ZZZZ Detoxification Services for Substance Abuse Treatment (ICD-10-PCS; principal; 2023-11-28)
DX: F10.230 Alcohol dependence with withdrawal, uncomplicated (principal); F14.20 Cocaine dependence, uncomplicated; F12.20 Cannabis dependence, uncomplicated; F17.210 Nicotine dependence, cigarettes, uncomplicated; F25.1 Schizoaffective disorder, depressive type; F43.10 Post-traumatic stress disorder, unspecified; G40.909 Epilepsy, unspecified, not intractable, without status epilepticus; I10 Essential (primary) hypertension; J45.20 Mild intermittent asthma, uncomplicated; R76.8 Other specified abnormal immunological findings in serum; Z86.19 Personal history of other infectious and parasitic diseases; Z62.810 Personal history of physical and sexual abuse in childhood; Z63.8 Other specified problems related to primary support group; Z88.0 Allergy status to penicillin
CPT/HCPCS: 36415; 80053; 80305; 80307; 81025; 82140; 85027; 86593; 86780; 93005; 93010

== ENCOUNTER 2024-01-20 18:24 | Inpatient (IN) | payer OTHER ==
[2024-01-20 19:42] VITALS: BMI 23.0
[2024-01-20] MEDS ORDERED: ALBUTEROL SO4 HFA INHALER IH PRN (20:23)
[2024-01-20] MEDS ORDERED: BENZONATATE 200 MG CAPSULE PO PRN (20:28)
[2024-01-20] MEDS ORDERED: IBUPROFEN 600 MG TABLET (FP) PO PRN (20:28)
[2024-01-20] MEDS ORDERED: LOPERAMIDE HCL 2 MG CAPSULE PO PRN (20:28)
[2024-01-20] MEDS ORDERED: MAG HYDROX/AL HYDROX/SIMETH 30 ML UNIT-DOSE CUP PO PRN (20:28)
[2024-01-20] MEDS ORDERED: METHOCARBAMOL 500 MG TABLET PO PRN (20:28)
[2024-01-20] MEDS ORDERED: P-EPHED 60MG/TRIPROLIDI 2.5MG TABLET PO PRN (20:28)
[2024-01-20] MEDS ORDERED: ACETAMINOPHEN 325 MG TABLET (FP) PO PRN (20:28)
[2024-01-20] MEDS ORDERED: hydrOXYzine PAMOATE 25 MG CAPSULE (FP) PO PRN (20:28)
[2024-01-20] MEDS ORDERED: IBUPROFEN 400 MG TABLET (FP) PO PRN (20:28)
[2024-01-20] MEDS ORDERED: BISMUTH SUBSALICYLATE 524 MG/30 ML PO PRN (20:28)
[2024-01-20] MEDS ORDERED: BENZOCAINE/MENTHOL (CHLORASEPTIC ) LOZENGE MM PRN (20:28)
[2024-01-20] MEDS ORDERED: MAGNESIUM HYDROX 2400MG/30ML ORAL SUSPENSION 30 ML CUP PO PRN (20:28)
[2024-01-20] MEDS ORDERED: POLYETHYLENE GLYCOL (HEALTHYLAX) 3350 17 GM PACKET PO PRN (20:28)
[2024-01-20] MEDS ORDERED: NICOTINE POLACRILEX 2 MG LOZENGE BC PRN (20:28)
[2024-01-20] MEDS ORDERED: DICYCLOMINE HCL 10 MG CAPSULE PO PRN (20:28)
[2024-01-20] MEDS ORDERED: guaiFENesin 600 MG TABLET.ER (FP) PO PRN (20:28)
[2024-01-20] MEDS: levETIRAcetam 500 MG TABLET (FP) PO SCH (21:54)
[2024-01-20] MEDS: THIAMINE 100 MG TABLET PO SCH (21:54)
[2024-01-20] MEDS: MELATONIN 5 MG TABLETS PO SCH (21:54)
[2024-01-20] MEDS: ATORVASTATIN CA 20 MG TABLET (FP) PO SCH (21:54)
[2024-01-20] MEDS: BUDESONIDE/FORMETEROL FUMARATE 160/4.5 mcg INHALER IH SCH (21:55)
[2024-01-21] MEDS: PRENATAL VITAMINS W/ FOLIC ACID TABLET (FP) PO SCH (09:11)
[2024-01-21] MEDS: NICOTINE 14 MG/24 HOURS TOPICAL PATCH TD SCH (09:11)
[2024-01-21] MEDS: GABAPENTIN 100 MG CAPSULE PO SCH (10:50)
[2024-01-21] MEDS: PARoxetine HCL 20 MG TABLET PO SCH (10:51)
[2024-01-21] MEDS: DIVALPROEX NA *ER* EXTEND REL 250 MG TABLET.SA PO SCH (10:59)
[2024-01-21] MEDS: diazePAM 5 MG TABLET PO SCH (11:44)
[2024-01-21 14:42] LABS: CHLORIDE 105 mmol/L (98-107); POTASSIUM 4.4 mmol/L (3.5-5.1); SODIUM 135 mmol/L (136-145)
[2024-01-21 14:45] LABS: CALCIUM 9.6 mg/dL (8.5-10.1); MCH 30.3 pg (25.7-33.7); MCHC 34.2 g/dl (32.0-36.0); MEAN CELL VOLUME 88.8 fl (80-96); MEAN PLT VOLUME 7.8 fl (7.5-11.1); PLATELET COUNT 342 10^3/uL (134-434); RBC 4.28 M/mm3 (3.60-5.2); WHITE BLOOD COUNT 6.7 K/mm3 (4.0-10.0)
[2024-01-21 14:46] LABS: ALBUMIN 3.8 g/dl (3.4-5.0); ANION GAP 4 mmol/L (4-13); BLOOD UREA NITROGEN 7.1 mg/dL (7-18); CO2 26 mmol/L (21-32); GLUCOSE,RANDOM 92 mg/dL (74-106)
[2024-01-21 14:49] LABS: CREATININE 0.7 mg/dL (0.55-1.3); SGOT/AST 19 U/L (15-37); SGPT/ALT 21 U/L (13-61)
[2024-01-21 14:50] LABS: BILIRUBIN,TOTAL 0.5 mg/dL (0.2-1)
[2024-01-21 14:51] LABS: TOT PROT 7.4 g/dl (6.4-8.2)
[2024-01-21 14:52] LABS: ALK PHOS 86 U/L (45-117)
[2024-01-21] MEDS: DIVALPROEX SODIUM 250 MG TABLET E.C. PO SCH (22:09)
[2024-01-21] MEDS: traZODone HCL 100 MG TABLET (FP) PO SCH (22:09)
[2024-01-21] MEDS: QUEtiapine FUMARATE 400 MG TABLET PO SCH (22:15)
[2024-01-22 03:22] LABS: HIV INTERPRETATION NEGATIVE (NEGATIVE)
[2024-01-22] MEDS: diazePAM 5 MG TABLET PO PRN (15:25)
[2024-01-23] MEDS: diazePAM 5 MG TABLET PO SCH (05:27)
[2024-01-23] MEDS: ONDANSETRON *ODT* 4 MG TABLET SL PRN (17:58)
[2024-01-24] MEDS: diazePAM 5 MG TABLET PO SCH (05:37)
[2024-01-25] MEDS: diazePAM 5 MG TABLET PO ONE (05:33)
[2024-01-25 06:37] VITALS: RESP 16
[2024-01-26] MEDS: NICOTINE POLACRILEX 2 MG GUM BUC PRN (08:40)
[2024-01-26 09:00] VITALS: BP 103/68; PULSE 65; TEMP 97.5
== END 2024-01-26 09:23 | disposition other institution (70) | DRG 774 ==
LOC: YASAS 18:24 → Y3N 20:56
PROVIDERS: ADMIT Allergy & Immunology; ATTEND Surgery
PROC: HZ2ZZZZ Detoxification Services for Substance Abuse Treatment (ICD-10-PCS; principal; 2024-01-20)
DX: F10.230 Alcohol dependence with withdrawal, uncomplicated (principal); F14.20 Cocaine dependence, uncomplicated; F12.20 Cannabis dependence, uncomplicated; F17.210 Nicotine dependence, cigarettes, uncomplicated; F25.9 Schizoaffective disorder, unspecified; F43.10 Post-traumatic stress disorder, unspecified; I10 Essential (primary) hypertension; E78.5 Hyperlipidemia, unspecified; G40.909 Epilepsy, unspecified, not intractable, without status epilepticus; J45.20 Mild intermittent asthma, uncomplicated; R76.8 Other specified abnormal immunological findings in serum; Z86.19 Personal history of other infectious and parasitic diseases; Z62.810 Personal history of physical and sexual abuse in childhood; Z63.8 Other specified problems related to primary support group; Z88.0 Allergy status to penicillin
CPT/HCPCS: 36415; 80053; 80164; 80305; 80307; 81025; 85027; 86593; 86780; 87389; Q0162

== ENCOUNTER 2024-02-23 11:52 | Inpatient (IN) | payer OTHER ==
[2024-02-23 13:07] VITALS: BMI 23.8
[2024-02-23] MEDS ORDERED: DICYCLOMINE HCL 10 MG CAPSULE PO PRN (14:09)
[2024-02-23] MEDS ORDERED: IBUPROFEN 400 MG TABLET (FP) PO PRN (14:09)
[2024-02-23] MEDS ORDERED: NALOXONE HCL 0.4 MG/ML VIAL IM PRN (14:09)
[2024-02-23] MEDS ORDERED: POLYETHYLENE GLYCOL (HEALTHYLAX) 3350 17 GM PACKET PO PRN (14:09)
[2024-02-23] MEDS ORDERED: NALOXONE (NARCAN) HCL 4 MG/0.1 ML SPRAY NS PRN (14:09)
[2024-02-23] MEDS ORDERED: ACETAMINOPHEN 325 MG TABLET (FP) PO PRN (14:09)
[2024-02-23] MEDS ORDERED: LORazepam 1 MG TABLET PO PRN (14:09)
[2024-02-23] MEDS ORDERED: LOPERAMIDE HCL 2 MG CAPSULE PO PRN (14:09)
[2024-02-23] MEDS ORDERED: MAGNESIUM HYDROX 2400MG/30ML ORAL SUSPENSION 30 ML CUP PO PRN (14:09)
[2024-02-23] MEDS ORDERED: BENZONATATE 200 MG CAPSULE PO PRN (14:09)
[2024-02-23] MEDS ORDERED: BISMUTH SUBSALICYLATE 262 MG/15 ML BTL PO PRN (14:09)
[2024-02-23] MEDS ORDERED: ONDANSETRON *ODT* 4 MG TABLET SL PRN (14:09)
[2024-02-23] MEDS ORDERED: BENZOCAINE/MENTHOL (CHLORASEPTIC ) LOZENGE MM PRN (14:09)
[2024-02-23] MEDS ORDERED: MAG HYDROX/AL HYDROX/SIMETH 30 ML UNIT-DOSE CUP PO PRN (14:09)
[2024-02-23] MEDS ORDERED: guaiFENesin 600 MG TABLET.ER (FP) PO PRN (14:09)
[2024-02-23] MEDS ORDERED: ALBUTEROL SO4 HFA INHALER IH PRN (14:11)
[2024-02-23] MEDS: NICOTINE 21 MG/24 HOURS TOPICAL PATCH TD SCH (15:27)
[2024-02-23] MEDS: PRENATAL VITAMINS W/ FOLIC ACID TABLET (FP) PO SCH (15:28)
[2024-02-23] MEDS: LORazepam 2 MG TABLET PO SCH (16:20)
[2024-02-23] MEDS: THIAMINE 100 MG TABLET PO SCH (22:56)
[2024-02-23] MEDS: MELATONIN 5 MG TABLETS PO SCH (22:56)
[2024-02-23] MEDS: IBUPROFEN 600 MG TABLET (FP) PO PRN (22:57)
[2024-02-23] MEDS: levETIRAcetam 500 MG TABLET (FP) PO SCH (22:59)
[2024-02-23] MEDS: BUDESONIDE/FORMETEROL FUMARATE 160/4.5 mcg INHALER IH SCH (22:59)
[2024-02-23] MEDS: LACTULOSE 20 GM/30 ML UDC (FOR ORAL USE ONLY) PO SCH (22:59)
[2024-02-23] MEDS: GABAPENTIN 300 MG CAPSULE PO SCH (22:59)
[2024-02-23] MEDS: DIVALPROEX SODIUM 250 MG TABLET E.C. PO SCH (22:59)
[2024-02-23] MEDS: ATORVASTATIN CA 20 MG TABLET (FP) PO SCH (22:59)
[2024-02-24] MEDS: ACAMPROSATE CALCIUM 333 MG TABLET.DR PO SCH (07:30)
[2024-02-24] MEDS: VERAPAMIL HCL 180 MG E.R. TABLET PO SCH (10:51)
[2024-02-24] MEDS: amLODIPine BESYLATE 5 MG TABLET (FP) PO SCH (10:51)
[2024-02-24 11:51] LABS: HEMATOCRIT 38.8 % (32.4-45.2); HEMOGLOBIN 12.8 GM/dL (10.7-15.3); MCH 29.6 pg (25.7-33.7); MEAN CELL VOLUME 89.8 fl (80-96); MEAN PLT VOLUME 8.6 fl (7.5-11.1); PLATELET COUNT 278 10^3/uL (134-434); RBC 4.33 M/mm3 (3.60-5.2); RDW 14.7 % (11.6-15.6); WHITE BLOOD COUNT 7.5 K/mm3 (4.0-10.0)
[2024-02-24 11:52] LABS: POTASSIUM 3.9 mmol/L (3.5-5.1)
[2024-02-24 11:55] LABS: CALCIUM 9.1 mg/dL (8.5-10.1)
[2024-02-24 11:56] LABS: BLOOD UREA NITROGEN 13.8 mg/dL (7-18)
[2024-02-24 12:00] LABS: BILIRUBIN,TOTAL 1.2 mg/dL (0.2-1); CREATININE 0.8 mg/dL (0.55-1.3)
[2024-02-24 12:01] LABS: TOT PROT 7.4 g/dl (6.4-8.2)
[2024-02-24] MEDS: METHOCARBAMOL 500 MG TABLET PO PRN (12:43)
[2024-02-24] MEDS: DIVALPROEX SODIUM 250 MG TABLET E.C. PO SCH (14:17)
[2024-02-24] MEDS: QUEtiapine FUMARATE 200 MG TABLET PO SCH (22:45)
[2024-02-25] MEDS: LORazepam 1 MG TABLET PO SCH (06:23)
[2024-02-25] MEDS: PARoxetine HCL 10 MG TABLET PO SCH (10:35)
[2024-02-26] MEDS ORDERED: LORazepam 0.5 MG TABLET PO PRN
[2024-02-26] MEDS: LORazepam 0.5 MG TABLET PO SCH (06:09)
[2024-02-26] MEDS: hydrOXYzine PAMOATE 25 MG CAPSULE (FP) PO PRN (18:22)
[2024-02-27] MEDS: LORazepam 0.5 MG TABLET PO ONE (05:34)
[2024-02-28 09:07] VITALS: BP 125/72; PULSE 90; RESP 18; TEMP 97.7
== END 2024-02-28 10:39 | disposition home or self-care (01) | DRG 774 ==
LOC: YASAS 11:52 → Y6N 14:21
PROVIDERS: ADMIT Allergy & Immunology; ATTEND Surgery
PROC: HZ2ZZZZ Detoxification Services for Substance Abuse Treatment (ICD-10-PCS; principal; 2024-02-23)
DX: F10.230 Alcohol dependence with withdrawal, uncomplicated (principal); F14.20 Cocaine dependence, uncomplicated; F12.20 Cannabis dependence, uncomplicated; F17.210 Nicotine dependence, cigarettes, uncomplicated; F19.282 Other psychoactive substance dependence with psychoactive substance-induced sleep disorder; F25.0 Schizoaffective disorder, bipolar type; F43.10 Post-traumatic stress disorder, unspecified; E72.20 Disorder of urea cycle metabolism, unspecified; I10 Essential (primary) hypertension; R56.9 Unspecified convulsions; Z62.810 Personal history of physical and sexual abuse in childhood; Z63.8 Other specified problems related to primary support group; Z99.89 Dependence on other enabling machines and devices; Z88.0 Allergy status to penicillin
CPT/HCPCS: 36415; 80053; 80177; 80305; 80307; 81025; 82140; 85027; 86593; 86780; 93005; 93010

== ENCOUNTER 2024-04-08 14:46 | Inpatient (IN) | payer OTHER ==
[2024-04-08 15:35] VITALS: BMI 22.8
[2024-04-08] MEDS ORDERED: ALBUTEROL SO4 HFA INHALER IH PRN (16:15)
[2024-04-08] MEDS ORDERED: IBUPROFEN 600 MG TABLET (FP) PO PRN (16:17)
[2024-04-08] MEDS ORDERED: LOPERAMIDE HCL 2 MG CAPSULE PO PRN (16:17)
[2024-04-08] MEDS ORDERED: P-EPHED 60MG/TRIPROLIDI 2.5MG TABLET PO PRN (16:17)
[2024-04-08] MEDS ORDERED: hydrOXYzine PAMOATE 25 MG CAPSULE (FP) PO PRN (16:17)
[2024-04-08] MEDS ORDERED: ACETAMINOPHEN 325 MG TABLET (FP) PO PRN (16:17)
[2024-04-08] MEDS ORDERED: NICOTINE POLACRILEX 2 MG LOZENGE BC PRN (16:17)
[2024-04-08] MEDS ORDERED: IBUPROFEN 400 MG TABLET (FP) PO PRN (16:17)
[2024-04-08] MEDS ORDERED: MAGNESIUM HYDROX 2400MG/30ML ORAL SUSPENSION 30 ML CUP PO PRN (16:17)
[2024-04-08] MEDS ORDERED: POLYETHYLENE GLYCOL (HEALTHYLAX) 3350 17 GM PACKET PO PRN (16:17)
[2024-04-08] MEDS ORDERED: MAG HYDROX/AL HYDROX/SIMETH 30 ML UNIT-DOSE CUP PO PRN (16:17)
[2024-04-08] MEDS ORDERED: guaiFENesin 600 MG TABLET.ER (FP) PO PRN (16:17)
[2024-04-08] MEDS ORDERED: DICYCLOMINE HCL 10 MG CAPSULE PO PRN (16:17)
[2024-04-08] MEDS ORDERED: BISMUTH SUBSALICYLATE 524 MG/30 ML PO PRN (16:17)
[2024-04-08] MEDS ORDERED: BENZONATATE 200 MG CAPSULE PO PRN (16:17)
[2024-04-08] MEDS ORDERED: BENZOCAINE/MENTHOL (CHLORASEPTIC ) LOZENGE MM PRN (16:17)
[2024-04-08] MEDS ORDERED: diazePAM 5 MG TABLET PO PRN (16:19)
[2024-04-08] MEDS: diazePAM 5 MG TABLET PO SCH (17:16)
[2024-04-08] MEDS: NICOTINE POLACRILEX 2 MG GUM BUC PRN (20:59)
[2024-04-08] MEDS: BUDESONIDE/FORMETEROL FUMARATE 160/4.5 mcg INHALER IH SCH (22:10)
[2024-04-08] MEDS: MELATONIN 5 MG TABLETS PO SCH (22:11)
[2024-04-08] MEDS: THIAMINE 100 MG TABLET PO SCH (22:11)
[2024-04-08] MEDS: levETIRAcetam 500 MG TABLET (FP) PO SCH (22:11)
[2024-04-08] MEDS: METHOCARBAMOL 500 MG TABLET PO PRN (22:12)
[2024-04-09] MEDS: amLODIPine BESYLATE 5 MG TABLET (FP) PO SCH (10:22)
[2024-04-09] MEDS: DIVALPROEX SODIUM 250 MG TABLET E.C. PO SCH (10:22)
[2024-04-09] MEDS: GABAPENTIN 300 MG CAPSULE PO SCH (10:22)
[2024-04-09] MEDS: PARoxetine HCL 20 MG TABLET PO SCH (10:22)
[2024-04-09] MEDS: PRENATAL VITAMINS W/ FOLIC ACID TABLET (FP) PO SCH (10:23)
[2024-04-09 11:57] LABS: HEMATOCRIT 37.7 % (32.4-45.2); HEMOGLOBIN 12.6 GM/dL (10.7-15.3); MCH 30.6 pg (25.7-33.7); MCHC 33.5 g/dl (32.0-36.0); MEAN CELL VOLUME 91.4 fl (80-96); PLATELET COUNT 302 10^3/uL (134-434); RBC 4.12 M/mm3 (3.60-5.2); RDW 14.4 % (11.6-15.6); WHITE BLOOD COUNT 10.2 K/mm3 (4.0-10.0)
[2024-04-09 12:11] LABS: CHLORIDE 103 mmol/L (98-107); POTASSIUM 4.3 mmol/L (3.5-5.1); SODIUM 138 mmol/L (136-145)
[2024-04-09 12:15] LABS: CALCIUM 9.3 mg/dL (8.5-10.1)
[2024-04-09 12:16] LABS: ALBUMIN 3.8 g/dl (3.4-5.0); ANION GAP 7 mmol/L (4-13); BLOOD UREA NITROGEN 19.5 mg/dL (7-18); CO2 28 mmol/L (21-32); GLUCOSE,RANDOM 75 mg/dL (74-106)
[2024-04-09 12:19] LABS: CREATININE 0.7 mg/dL (0.55-1.3); SGOT/AST 20 U/L (15-37); SGPT/ALT 20 U/L (13-61)
[2024-04-09 12:20] LABS: BILIRUBIN,TOTAL 0.5 mg/dL (0.2-1)
[2024-04-09 12:23] LABS: TOT PROT 7.5 g/dl (6.4-8.2)
[2024-04-09 12:24] LABS: ALK PHOS 80 U/L (45-117)
[2024-04-09 14:55] LABS: HIV INTERPRETATION NEGATIVE (NEGATIVE)
[2024-04-09] MEDS: ONDANSETRON *ODT* 4 MG TABLET SL PRN (17:04)
[2024-04-09] MEDS: QUEtiapine FUMARATE 200 MG TABLET PO SCH (22:14)
[2024-04-10] MEDS: diazePAM 5 MG TABLET PO SCH (05:36)
[2024-04-10] MEDS: COLLOIDAL OATMEAL 1 BAR EACH TP PRN (22:50)
[2024-04-11] MEDS: diazePAM 5 MG TABLET PO SCH (05:43)
[2024-04-11 21:09] VITALS: RESP 16
[2024-04-12] MEDS: diazePAM 5 MG TABLET PO ONE (05:36)
[2024-04-12 08:24] VITALS: BP 111/79; PULSE 89; TEMP 97.9
== END 2024-04-12 11:36 | disposition home or self-care (01) | DRG 774 ==
LOC: YASAS 14:46 → Y3N 16:37
PROVIDERS: ADMIT Allergy & Immunology; ATTEND Surgery
PROC: HZ2ZZZZ Detoxification Services for Substance Abuse Treatment (ICD-10-PCS; principal; 2024-04-08)
DX: F10.230 Alcohol dependence with withdrawal, uncomplicated (principal); F14.20 Cocaine dependence, uncomplicated; F12.20 Cannabis dependence, uncomplicated; F17.210 Nicotine dependence, cigarettes, uncomplicated; F43.10 Post-traumatic stress disorder, unspecified; F25.0 Schizoaffective disorder, bipolar type; F19.982 Other psychoactive substance use, unspecified with psychoactive substance-induced sleep disorder; I10 Essential (primary) hypertension; G40.909 Epilepsy, unspecified, not intractable, without status epilepticus; J45.909 Unspecified asthma, uncomplicated; E78.5 Hyperlipidemia, unspecified; Z88.0 Allergy status to penicillin; Z91.013 Allergy to seafood; Z91.018 Allergy to other foods; Z62.810 Personal history of physical and sexual abuse in childhood; Z56.0 Unemployment, unspecified
CPT/HCPCS: 36415; 80053; 80305; 80307; 81025; 85027; 87389; Q0162

== ENCOUNTER 2024-05-21 12:53 | Inpatient (IN) | payer OTHER ==
[2024-05-21 14:07] VITALS: BMI 24.2
[2024-05-21] MEDS ORDERED: hydrOXYzine PAMOATE 25 MG CAPSULE (FP) PO PRN (14:52)
[2024-05-21] MEDS ORDERED: BENZONATATE 200 MG CAPSULE PO PRN (14:52)
[2024-05-21] MEDS ORDERED: DICYCLOMINE HCL 10 MG CAPSULE PO PRN (14:52)
[2024-05-21] MEDS ORDERED: BENZOCAINE/MENTHOL (CHLORASEPTIC ) LOZENGE MM PRN (14:52)
[2024-05-21] MEDS ORDERED: METHOCARBAMOL 500 MG TABLET PO PRN (14:52)
[2024-05-21] MEDS ORDERED: POLYETHYLENE GLYCOL (HEALTHYLAX) 3350 17 GM PACKET PO PRN (14:52)
[2024-05-21] MEDS ORDERED: NALOXONE (NARCAN) HCL 4 MG/0.1 ML SPRAY NS PRN (14:52)
[2024-05-21] MEDS ORDERED: MAGNESIUM HYDROX 2400MG/30ML ORAL SUSPENSION 30 ML CUP PO PRN (14:52)
[2024-05-21] MEDS ORDERED: NICOTINE POLACRILEX 4 MG LOZENGE BC PRN (14:52)
[2024-05-21] MEDS ORDERED: LOPERAMIDE HCL 2 MG CAPSULE PO PRN (14:52)
[2024-05-21] MEDS ORDERED: IBUPROFEN 400 MG TABLET (FP) PO PRN (14:52)
[2024-05-21] MEDS ORDERED: MAG HYDROX/AL HYDROX/SIMETH 30 ML UNIT-DOSE CUP PO PRN (14:52)
[2024-05-21] MEDS ORDERED: NALOXONE HCL 0.4 MG/ML VIAL IM PRN (14:52)
[2024-05-21] MEDS ORDERED: NICOTINE POLACRILEX 4 MG GUM BUC PRN (14:52)
[2024-05-21] MEDS ORDERED: guaiFENesin 600 MG TABLET.ER (FP) PO PRN (14:52)
[2024-05-21] MEDS: diazePAM 5 MG TABLET PO SCH (17:22)
[2024-05-21] MEDS: IBUPROFEN 600 MG TABLET (FP) PO PRN (19:24)
[2024-05-21] MEDS: BUDESONIDE/FORMETEROL FUMARATE 160/4.5 mcg INHALER IH SCH (21:54)
[2024-05-21] MEDS: ACAMPROSATE CALCIUM 333 MG TABLET.DR PO SCH (21:55)
[2024-05-21] MEDS: levETIRAcetam 500 MG TABLET (FP) PO SCH (21:55)
[2024-05-21] MEDS: GABAPENTIN 300 MG CAPSULE PO SCH (21:55)
[2024-05-21] MEDS: DIVALPROEX SODIUM 250 MG TABLET E.C. PO SCH (21:55)
[2024-05-21] MEDS: THIAMINE 100 MG TABLET PO SCH (21:56)
[2024-05-21] MEDS: MELATONIN 5 MG TABLETS PO SCH (21:56)
[2024-05-21] MEDS: ALBUTEROL SO4 HFA INHALER IH PRN (21:59)
[2024-05-22] MEDS: PRENATAL VITAMINS W/ FOLIC ACID TABLET (FP) PO SCH (10:37)
[2024-05-22] MEDS: amLODIPine BESYLATE 5 MG TABLET (FP) PO SCH (10:42)
[2024-05-22] MEDS: NICOTINE 21 MG/24 HOURS TOPICAL PATCH TD SCH (10:45)
[2024-05-22] MEDS: VERAPAMIL HCL 180 MG E.R. TABLET PO SCH (10:47)
[2024-05-22] MEDS: NICOTINE 14 MG/24 HOURS TOPICAL PATCH TD SCH (11:13)
[2024-05-22] MEDS: PARoxetine HCL 20 MG TABLET PO SCH (13:10)
[2024-05-22 14:18] LABS: HEMATOCRIT 36.2 % (32.4-45.2); HEMOGLOBIN 11.8 GM/dL (10.7-15.3); MCHC 32.5 g/dl (32.0-36.0); MEAN CELL VOLUME 92.3 fl (80-96); MEAN PLT VOLUME 9.8 fl (7.5-11.1); PLATELET COUNT 273 10^3/uL (134-434); RBC 3.92 M/mm3 (3.60-5.2); RDW 14.5 % (11.6-15.6); WHITE BLOOD COUNT 8.9 K/mm3 (4.0-10.0)
[2024-05-22 14:48] LABS: ALBUMIN 3.8 g/dl (3.4-5.0); BLOOD UREA NITROGEN 8.1 mg/dL (7-18); CALCIUM 9.2 mg/dL (8.5-10.1)
[2024-05-22 14:51] LABS: CREATININE 0.5 mg/dL (0.55-1.3)
[2024-05-22 14:52] LABS: BILIRUBIN,TOTAL 0.5 mg/dL (0.2-1)
[2024-05-22 14:53] LABS: TOT PROT 7.5 g/dl (6.4-8.2)
[2024-05-22] MEDS: DOXYCYCLINE HYCLATE 100 MG TABLET PO SCH (17:02)
[2024-05-22] MEDS: QUEtiapine FUMARATE 200 MG TABLET PO SCH (22:11)
[2024-05-23] MEDS: CHLORHEXIDINE GLUCONATE 4% CLEANSER FOR DECOLONIZATION TP SCH (00:29)
[2024-05-23] MEDS: diazePAM 5 MG TABLET PO SCH (05:49)
[2024-05-23] MEDS: diazePAM 5 MG TABLET PO PRN (18:11)
[2024-05-23] MEDS: ACETAMINOPHEN 325 MG TABLET (FP) PO PRN (19:22)
[2024-05-23] MEDS: traZODone HCL 50 MG TABLET (FP) PO SCH (22:25)
[2024-05-24] MEDS: diazePAM 5 MG TABLET PO SCH (06:44)
[2024-05-24] MEDS: ONDANSETRON *ODT* 4 MG TABLET SL PRN (14:26)
[2024-05-25] MEDS: diazePAM 5 MG TABLET PO ONE (05:53)
[2024-05-25] MEDS ORDERED: PENICILLIN G BENZATHINE 2,400,000 UNIT/4 ML PFS IM ONE (09:40)
[2024-05-26] MEDS: BISMUTH SUBSALICYLATE 524 MG/30 ML PO PRN (01:16)
[2024-05-27 22:54] VITALS: RESP 18
[2024-05-28 09:58] VITALS: BP 110/65; PULSE 98; TEMP 98.6
== END 2024-05-28 12:18 | disposition other institution (70) | DRG 774 ==
LOC: YASAS 12:53 → Y6N 16:10
PROVIDERS: ADMIT Allergy & Immunology; ATTEND Surgery
PROC: HZ2ZZZZ Detoxification Services for Substance Abuse Treatment (ICD-10-PCS; principal; 2024-05-21)
DX: F10.230 Alcohol dependence with withdrawal, uncomplicated (principal); F14.20 Cocaine dependence, uncomplicated; F12.20 Cannabis dependence, uncomplicated; F17.210 Nicotine dependence, cigarettes, uncomplicated; F25.0 Schizoaffective disorder, bipolar type; F19.282 Other psychoactive substance dependence with psychoactive substance-induced sleep disorder; F19.24 Other psychoactive substance dependence with psychoactive substance-induced mood disorder; F41.8 Other specified anxiety disorders; E87.5 Hyperkalemia; G40.909 Epilepsy, unspecified, not intractable, without status epilepticus; I10 Essential (primary) hypertension; J45.20 Mild intermittent asthma, uncomplicated; A53.9 Syphilis, unspecified; Z62.810 Personal history of physical and sexual abuse in childhood; Z63.8 Other specified problems related to primary support group; Z86.19 Personal history of other infectious and parasitic diseases
CPT/HCPCS: 36415; 80053; 80305; 80307; 81025; 84132; 85027; 86593; 86780; 93005; 93010; Q0162

== ENCOUNTER 2024-05-28 12:56 | Inpatient (IN) | payer OTHER ==
[2024-05-28] MEDS ORDERED: BENZOCAINE/MENTHOL (CHLORASEPTIC ) LOZENGE MM PRN (13:21)
[2024-05-28] MEDS ORDERED: NALOXONE HCL 0.4 MG/ML VIAL IM PRN (13:21)
[2024-05-28] MEDS ORDERED: IBUPROFEN 400 MG TABLET (FP) PO PRN (13:21)
[2024-05-28] MEDS ORDERED: MAG HYDROX/AL HYDROX/SIMETH 30 ML UNIT-DOSE CUP PO PRN (13:21)
[2024-05-28] MEDS ORDERED: IBUPROFEN 600 MG TABLET (FP) PO PRN (13:21)
[2024-05-28] MEDS ORDERED: MAGNESIUM HYDROX 2400MG/30ML ORAL SUSPENSION 30 ML CUP PO PRN (13:21)
[2024-05-28] MEDS ORDERED: POLYETHYLENE GLYCOL (HEALTHYLAX) 3350 17 GM PACKET PO PRN (13:21)
[2024-05-28] MEDS ORDERED: LOPERAMIDE HCL 2 MG CAPSULE PO PRN (13:21)
[2024-05-28] MEDS ORDERED: ACETAMINOPHEN 325 MG TABLET (FP) PO PRN (13:21)
[2024-05-28] MEDS ORDERED: BENZONATATE 200 MG CAPSULE PO PRN (13:21)
[2024-05-28] MEDS ORDERED: guaiFENesin 600 MG TABLET.ER (FP) PO PRN (13:21)
[2024-05-28] MEDS ORDERED: NALOXONE (NARCAN) HCL 4 MG/0.1 ML SPRAY NS PRN (13:21)
[2024-05-28] MEDS ORDERED: ALBUTEROL SO4 HFA INHALER IH PRN (13:26)
[2024-05-28] MEDS: ACAMPROSATE CALCIUM 333 MG TABLET.DR PO SCH (14:30)
[2024-05-28] MEDS: GABAPENTIN 300 MG CAPSULE PO SCH (14:30)
[2024-05-28] MEDS: BUDESONIDE/FORMETEROL FUMARATE 160/4.5 mcg INHALER IH SCH (14:30)
[2024-05-28] MEDS: levETIRAcetam 500 MG TABLET (FP) PO SCH (14:30)
[2024-05-28] MEDS: DIVALPROEX SODIUM 250 MG TABLET E.C. PO SCH (14:31)
[2024-05-28] MEDS: amLODIPine BESYLATE 5 MG TABLET (FP) PO SCH (14:31)
[2024-05-28] MEDS: PRENATAL VITAMINS W/ FOLIC ACID TABLET (FP) PO SCH (14:31)
[2024-05-28] MEDS: DOXYCYCLINE HYCLATE 100 MG TABLET PO SCH (17:15)
[2024-05-28] MEDS ORDERED: DOXYCYCLINE HYCLATE 100 MG CAPSULE PO SCH (18:00)
[2024-05-28] MEDS: traZODone HCL 50 MG TABLET (FP) PO SCH (21:03)
[2024-05-28] MEDS: THIAMINE 100 MG TABLET PO SCH (21:03)
[2024-05-28] MEDS: QUEtiapine FUMARATE 200 MG TABLET PO SCH (21:03)
[2024-05-28] MEDS: MELATONIN 5 MG TABLETS PO SCH (22:41)
[2024-05-29] MEDS: PARoxetine HCL 20 MG TABLET PO SCH (09:11)
[2024-05-29] MEDS: VERAPAMIL HCL 180 MG E.R. TABLET PO SCH (09:11)
[2024-05-29] MEDS: NICOTINE 21 MG/24 HOURS TOPICAL PATCH TD SCH (09:12)
[2024-05-29 13:48] LABS: HEMATOCRIT 34.1 % (32.4-45.2); HEMOGLOBIN 11.4 GM/dL (10.7-15.3); MCH 30.4 pg (25.7-33.7); MCHC 33.3 g/dl (32.0-36.0); MEAN CELL VOLUME 91.2 fl (80-96); PLATELET COUNT 245 10^3/uL (134-434); RBC 3.73 M/mm3 (3.60-5.2); RDW 15.5 % (11.6-15.6); WHITE BLOOD COUNT 7.8 K/mm3 (4.0-10.0)
[2024-05-29 13:55] LABS: PH,URINE 6.5 (5.0-8.0); URINE APPEARANCE CLEAR; URINE BILIRUBIN NEGATIVE (NEGATIVE); URINE COLOR YELLOW; URINE GLUCOSE (UA) NEGATIVE (NEGATIVE); URINE KETONE NEGATIVE (NEGATIVE); URINE LEUK ESTERASE NEGATIVE (NEGATIVE); URINE NITRITE NEGATIVE (NEGATIVE); URINE PROTEIN NEGATIVE (NEGATIVE); URINE UROBILINOGEN 0.2 mg/dL (0.2-1.0)
[2024-05-29 15:18] LABS: POTASSIUM 4.4 mmol/L (3.5-5.1)
[2024-05-29 15:23] LABS: ALBUMIN 3.6 g/dl (3.4-5.0); CALCIUM 9.3 mg/dL (8.5-10.1)
[2024-05-29 15:24] LABS: BLOOD UREA NITROGEN 26.1 mg/dL (7-18)
[2024-05-29 15:27] LABS: CREATININE 0.6 mg/dL (0.55-1.3)
[2024-05-29 15:29] LABS: BILIRUBIN,TOTAL 0.3 mg/dL (0.2-1); TOT PROT 7.6 g/dl (6.4-8.2)
[2024-05-29] MEDS: traZODone HCL 50 MG TABLET (FP) PO SCH (21:44)
[2024-05-30] MEDS: NICOTINE POLACRILEX 4 MG GUM BUC PRN (10:06)
[2024-06-01] MEDS: QUEtiapine FUMARATE 200 MG TABLET PO SCH (21:37)
[2024-06-06] MEDS: QUEtiapine FUMARATE 400 MG TABLET PO SCH (21:28)
[2024-06-06] MEDS ORDERED: QUETIAPINE FUMARATE 300 MG, QUETIAPINE FUMARATE 50 MG PO SCH (22:00)
[2024-06-06] MEDS ORDERED: QUEtiapine FUMARATE 200 MG TABLET PO SCH (22:00)
[2024-06-06] MEDS: hydrOXYzine PAMOATE 25 MG CAPSULE (FP) PO PRN (23:04)
[2024-06-08 06:59] VITALS: BP 111/79; PULSE 76; RESP 16; TEMP 97.6
== END 2024-06-08 09:43 | disposition home or self-care (01) | DRG 772 ==
LOC: YASAS 12:56 → Y3NR 12:57 → Y5N 05-29 12:15
PROVIDERS: ADMIT Psychiatry & Neurology Pain Medicine; ATTEND Psychiatry & Neurology Pain Medicine
PROC: HZ42ZZZ Group Counseling for Substance Abuse Treatment, Cognitive-Behavioral (ICD-10-PCS; principal; 2024-05-28)
DX: F10.20 Alcohol dependence, uncomplicated (principal); F14.20 Cocaine dependence, uncomplicated; F12.20 Cannabis dependence, uncomplicated; F17.210 Nicotine dependence, cigarettes, uncomplicated; F25.0 Schizoaffective disorder, bipolar type; F41.8 Other specified anxiety disorders; G40.909 Epilepsy, unspecified, not intractable, without status epilepticus; E78.5 Hyperlipidemia, unspecified; I10 Essential (primary) hypertension; J45.909 Unspecified asthma, uncomplicated
CPT/HCPCS: 36415; 80053; 80307; 81003; 85027; 86593; 86780; 93005; 93010

== ENCOUNTER 2025-01-02 16:39 | Inpatient (IN) | payer OTHER ==
[2025-01-02 17:03] VITALS: BMI 24.2
[2025-01-02] MEDS ORDERED: diazePAM 5 MG TABLET PO PRN (17:27)
[2025-01-02] MEDS ORDERED: BENZONATATE 200 MG CAPSULE PO PRN (17:31)
[2025-01-02] MEDS ORDERED: BISMUTH SUBSALICYLATE 524 MG/30 ML PO PRN (17:31)
[2025-01-02] MEDS ORDERED: LOPERAMIDE HCL 2 MG CAPSULE PO PRN (17:31)
[2025-01-02] MEDS ORDERED: guaiFENesin 600 MG TABLET.ER (FP) PO PRN (17:31)
[2025-01-02] MEDS ORDERED: NALOXONE (NARCAN) HCL 4 MG/0.1 ML SPRAY NS PRN (17:31)
[2025-01-02] MEDS ORDERED: MAG HYDROX/AL HYDROX/SIMETH 30 ML UNIT-DOSE CUP PO PRN (17:31)
[2025-01-02] MEDS ORDERED: NICOTINE POLACRILEX 2 MG GUM BUC PRN (17:31)
[2025-01-02] MEDS ORDERED: POLYETHYLENE GLYCOL (HEALTHYLAX) 3350 17 GM PACKET PO PRN (17:31)
[2025-01-02] MEDS ORDERED: DICYCLOMINE HCL 10 MG CAPSULE PO PRN (17:31)
[2025-01-02] MEDS ORDERED: ACETAMINOPHEN 325 MG TABLET (FP) PO PRN (17:31)
[2025-01-02] MEDS ORDERED: ONDANSETRON *ODT* 4 MG TABLET SL PRN (17:31)
[2025-01-02] MEDS ORDERED: MAGNESIUM HYDROX 2400MG/30ML ORAL SUSPENSION 30 ML CUP PO PRN (17:31)
[2025-01-02] MEDS ORDERED: NICOTINE POLACRILEX 2 MG LOZENGE BC PRN (17:31)
[2025-01-02] MEDS ORDERED: IBUPROFEN 600 MG TABLET (FP) PO PRN (17:31)
[2025-01-02] MEDS ORDERED: IBUPROFEN 400 MG TABLET (FP) PO PRN (17:31)
[2025-01-02] MEDS: diazePAM 5 MG TABLET PO SCH (18:00)
[2025-01-02] MEDS ORDERED: diazePAM 5 MG TABLET ONE (18:42)
[2025-01-02] MEDS ORDERED: ALBUTEROL SO4 HFA INHALER IH PRN (20:08)
[2025-01-02] MEDS: levETIRAcetam 500 MG TABLET (FP) PO SCH (23:05)
[2025-01-02] MEDS: THIAMINE 100 MG TABLET PO SCH (23:05)
[2025-01-02] MEDS: MELATONIN 5 MG TABLETS PO SCH (23:06)
[2025-01-02] MEDS: BUDESONIDE/FORMETEROL FUMARATE 160/4.5 mcg INHALER IH SCH (23:06)
[2025-01-02] MEDS: METHOCARBAMOL 500 MG TABLET PO PRN (23:07)
[2025-01-03] MEDS: diazePAM 5 MG TABLET PO SCH (06:18)
[2025-01-03] MEDS ORDERED: VERAPAMIL HCL 180 MG E.R. TABLET PO SCH (10:00)
[2025-01-03] MEDS ORDERED: amLODIPine BESYLATE 5 MG TABLET (FP) PO SCH (10:00)
[2025-01-03] MEDS: PRENATAL VITAMINS W/ FOLIC ACID TABLET (FP) PO SCH (10:27)
[2025-01-03] MEDS: GABAPENTIN 300 MG CAPSULE PO SCH (10:59)
[2025-01-03 11:43] LABS: HEMATOCRIT 36.8 % (34.1-44.9); HEMOGLOBIN 11.7 g/dL (11.2-15.7); MCHC 31.8 g/dl (32.2-35.5); MEAN CELL VOLUME 91.1 fl (79.4-94.8); MEAN PLT VOLUME 10.3 fl (9.4-12.3); PLATELET COUNT 319 x10^3/uL (182-369); RDW 13.2 % (12.2-17.1)
[2025-01-03 12:25] LABS: CHLORIDE 107 mmol/L (98-107); POTASSIUM 3.7 mmol/L (3.5-5.1); SODIUM 142 mmol/L (136-145)
[2025-01-03 12:27] LABS: ANION GAP 10 mmol/L (4-13); CO2 25 mmol/L (21-32); GLUCOSE,RANDOM 96 mg/dL (74-106)
[2025-01-03 12:28] LABS: ALBUMIN 3.1 g/dl (3.4-5.0); BLOOD UREA NITROGEN 16.9 mg/dL (7-18)
[2025-01-03 12:30] LABS: CALCIUM 8.9 mg/dL (8.5-10.1)
[2025-01-03 12:31] LABS: CREATININE 0.6 mg/dL (0.55-1.3); SGOT/AST 20 U/L (15-37); SGPT/ALT 21 U/L (13-61)
[2025-01-03 12:32] LABS: BILIRUBIN,TOTAL 0.2 mg/dL (0.2-1); TOT PROT 6.4 g/dl (6.4-8.2)
[2025-01-03 12:33] LABS: ALK PHOS 72 U/L (45-117)
[2025-01-03] MEDS: QUEtiapine FUMARATE 200 MG TABLET PO SCH (22:45)
[2025-01-03] MEDS: BENZOCAINE/MENTHOL (CHLORASEPTIC ) LOZENGE MM PRN (22:47)
[2025-01-04] MEDS: diazePAM 5 MG TABLET PO SCH (05:59)
[2025-01-05] MEDS: diazePAM 5 MG TABLET PO ONE (06:11)
[2025-01-05 09:26] VITALS: BP 120/79; PULSE 102; RESP 20; TEMP 98.4
== END 2025-01-05 12:35 | disposition other institution (70) | DRG 774 ==
LOC: YASAS 16:39 → Y6N 18:18
PROVIDERS: ADMIT Allergy & Immunology; ATTEND Allergy & Immunology
PROC: HZ2ZZZZ Detoxification Services for Substance Abuse Treatment (ICD-10-PCS; principal; 2025-01-02)
DX: F10.230 Alcohol dependence with withdrawal, uncomplicated (principal); F14.10 Cocaine abuse, uncomplicated; F17.210 Nicotine dependence, cigarettes, uncomplicated; F25.0 Schizoaffective disorder, bipolar type; F19.282 Other psychoactive substance dependence with psychoactive substance-induced sleep disorder; F19.280 Other psychoactive substance dependence with psychoactive substance-induced anxiety disorder; F19.24 Other psychoactive substance dependence with psychoactive substance-induced mood disorder; F43.10 Post-traumatic stress disorder, unspecified; F41.9 Anxiety disorder, unspecified; G40.909 Epilepsy, unspecified, not intractable, without status epilepticus; I10 Essential (primary) hypertension; J45.20 Mild intermittent asthma, uncomplicated; Z62.810 Personal history of physical and sexual abuse in childhood; Z63.8 Other specified problems related to primary support group
CPT/HCPCS: 36415; 80053; 80305; 80307; 81025; 85027; 86593; 86780; 87811; 93005; 93010

== ENCOUNTER 2025-03-23 15:08 | Inpatient (IN) | payer OTHER ==
[2025-03-23] MEDS ORDERED: IBUPROFEN 400 MG TABLET (FP) PO PRN (16:39)
[2025-03-23] MEDS ORDERED: guaiFENesin 600 MG TABLET.ER (FP) PO PRN (16:39)
[2025-03-23] MEDS ORDERED: BENZOCAINE/MENTHOL (CHLORASEPTIC ) LOZENGE MM PRN (16:39)
[2025-03-23] MEDS ORDERED: LOPERAMIDE HCL 2 MG CAPSULE PO PRN (16:39)
[2025-03-23] MEDS ORDERED: BISMUTH SUBSALICYLATE 524 MG/30 ML PO PRN (16:39)
[2025-03-23] MEDS ORDERED: IBUPROFEN 600 MG TABLET (FP) PO PRN (16:39)
[2025-03-23] MEDS ORDERED: BENZONATATE 200 MG CAPSULE PO PRN (16:39)
[2025-03-23] MEDS ORDERED: ACETAMINOPHEN 325 MG TABLET (FP) PO PRN (16:39)
[2025-03-23] MEDS ORDERED: POLYETHYLENE GLYCOL (HEALTHYLAX) 3350 17 GM PACKET PO PRN (16:39)
[2025-03-23] MEDS ORDERED: MAGNESIUM HYDROX 2400MG/30ML ORAL SUSPENSION 30 ML CUP PO PRN (16:39)
[2025-03-23] MEDS ORDERED: DICYCLOMINE HCL 10 MG CAPSULE PO PRN (16:39)
[2025-03-23] MEDS ORDERED: NALOXONE (NARCAN) HCL 4 MG/0.1 ML SPRAY NS PRN (16:39)
[2025-03-23] MEDS ORDERED: MAG HYDROX/AL HYDROX/SIMETH 30 ML UNIT-DOSE CUP PO PRN (16:39)
[2025-03-23] MEDS ORDERED: ONDANSETRON *ODT* 4 MG TABLET SL PRN (16:39)
[2025-03-23] MEDS ORDERED: levETIRAcetam 500 MG TABLET (FP) PO ONE (17:51)
[2025-03-23] MEDS: levETIRAcetam 500 MG TABLET (FP) PO ONE (17:54)
[2025-03-23] MEDS: DIVALPROEX SODIUM 250 MG TABLET E.C. PO SCH (22:19)
[2025-03-23] MEDS: METHOCARBAMOL 500 MG TABLET PO PRN (22:19)
[2025-03-23] MEDS: THIAMINE 100 MG TABLET PO SCH (22:19)
[2025-03-23] MEDS: MELATONIN 5 MG TABLETS PO SCH (22:19)
[2025-03-24 10:12] LABS: MCHC 31.5 g/dl (32.2-35.5); MEAN CELL VOLUME 89.9 fl (79.4-94.8); MEAN PLT VOLUME 9.6 fl (9.4-12.3); RDW 14.3 % (12.2-17.1)
[2025-03-24] MEDS: levETIRAcetam 500 MG TABLET (FP) PO SCH (10:28)
[2025-03-24] MEDS: PRENATAL VITAMINS W/ FOLIC ACID TABLET (FP) PO SCH (10:28)
[2025-03-24] MEDS: amLODIPine BESYLATE 5 MG TABLET (FP) PO SCH (10:35)
[2025-03-24 10:41] LABS: CO2 29 mmol/L (21-32); GLUCOSE,RANDOM 94 mg/dL (74-106)
[2025-03-24 10:44] LABS: CREATININE 0.6 mg/dL (0.55-1.3); SGOT/AST 24 U/L (15-37); SGPT/ALT 25 U/L (13-61)
[2025-03-24 10:45] LABS: TOT PROT 7.6 g/dl (6.4-8.2)
[2025-03-24 10:46] LABS: ALK PHOS 90 U/L (45-117)
[2025-03-24] MEDS: GABAPENTIN 300 MG CAPSULE PO SCH (14:17)
[2025-03-26] MEDS: hydrOXYzine PAMOATE 25 MG CAPSULE (FP) PO PRN (17:35)
[2025-03-26] MEDS: traZODone HCL 100 MG TABLET (FP) PO SCH (22:13)
[2025-03-27 09:22] VITALS: BP 116/70; PULSE 81; RESP 18; TEMP 97.8
== END 2025-03-27 09:54 | disposition home or self-care (01) | DRG 774 ==
LOC: YASAS 15:08 → Y6N 17:54
PROVIDERS: ADMIT Neuromusculoskeletal Medicine & OMM; ATTEND Allergy & Immunology
PROC: HZ2ZZZZ Detoxification Services for Substance Abuse Treatment (ICD-10-PCS; principal; 2025-03-23)
DX: F10.230 Alcohol dependence with withdrawal, uncomplicated (principal); F14.20 Cocaine dependence, uncomplicated; F12.20 Cannabis dependence, uncomplicated; F17.210 Nicotine dependence, cigarettes, uncomplicated; F19.282 Other psychoactive substance dependence with psychoactive substance-induced sleep disorder; F19.280 Other psychoactive substance dependence with psychoactive substance-induced anxiety disorder; F19.24 Other psychoactive substance dependence with psychoactive substance-induced mood disorder; F25.0 Schizoaffective disorder, bipolar type; F43.10 Post-traumatic stress disorder, unspecified; F32.A Depression, unspecified; G40.909 Epilepsy, unspecified, not intractable, without status epilepticus; E78.5 Hyperlipidemia, unspecified; I10 Essential (primary) hypertension; J45.20 Mild intermittent asthma, uncomplicated; Z86.19 Personal history of other infectious and parasitic diseases; Z62.810 Personal history of physical and sexual abuse in childhood; Z63.8 Other specified problems related to primary support group; Z59.00 Homelessness unspecified
CPT/HCPCS: 36415; 80053; 80305; 80307; 81025; 85027; 86593; 86780; 93005; 93010